=== PATIENT | female | born 1995 | race African-American/Black ===

== ENCOUNTER 2020-04-22 13:27 | Emergency (ER) | payer OTHER, SELFPAY ==
--- NOTE | ~2020-04-22 | CT_ITS ---
EXAMINATION: CT abdomen pelvis w con INDICATION: Abdominal pain TECHNIQUE: Computed tomographic images of the abdomen and pelvis were obtained after the administrati on of 100 cc of Omnipaque 350 intravenous contrast. The dose-length product (DLP) was 163.33 mGy-cm. Automated exposure control and iterative reconstruction technique were employed. COMPARISON: 08/19/2016 FINDINGS: The lung bases are clear. The heart size is normal. The liver, spleen, pancreas, gallbladde r, and adrenal glands are normal. The kidneys are unremarkable. No pathologically enlarged abdominal or pelvic lymph nodes are identified. There is no free intraperitoneal gas or evidence of bowel obstr uction. A moderate volume of colonic stool is present. The appendix appears normal. IMPRESSION: 1. No CT correlate for the patient's symptoms. Reviewed, dictated and finalized at location [facility].
[2020-04-22 13:32] VITALS: BP 107/74; PULSE 78; RESP 18; TEMP 36.8; O2SAT 100
--- NOTE | 2020-04-22 13:52 | ED.ABDPAIN ---
HPI - Abdominal Pain General Chief Complaint: Abdominal Pain Stated Complaint: nausea/dizziness/possible preg Time Seen by Provider: 04/22/20 13:31 Source: RN notes reviewed History of Present Illness HPI narrative: Patient presents emergency department from home for abdominal pain. Patient states she has been having intermittent abdominal pain for the past 2 weeks. The pain is described as cramping in nature and bilateral in the abdomen. Associated with nausea and vomiting with last episode of vomiting 2 days ago. Denies any fevers or chills chest pain shortness of breath diarrhea vaginal bleeding or any other symptoms. States she took no pain medication today Related Data Allergies Allergy/AdvReac Type Severity Reaction Status Date / Time No Known Allergies Allergy Unknown Verified 04/22/20 13:45 Review of Systems Review of Systems: Narrative: Gen.: Denies fevers or chills ENT: Denies congestion Respiratory: Denies shortness of breath or cough CV: Denies chest pain or palpitations GI: See HPI denies burning, urgency, frequency or hematuria Musculoskeletal: Denies back pain or muscle pain Neuro: Denies numbness, tingling, weakness or focal weakness Skin: Denies rash Except as documented, all other systems reviewed and negative [facility] Past Medical History Medical History Psychogenic nonepileptic seizure Family History Family History (Updated 08/10/19 @ 12:54 by Jyoti Rosenthal RN) Other Diabetes mellitus Sibling Sickle cell anemia Mother Family history of seizure disorder Social History Social History Smoking status: Never smoker Second hand tobacco smoke exposure: No Alcohol intake: never Substance use: never Gender identity (if verbalized by the patient): Female Spiritual care concerns: No Exam Narrative: Exam Narrative: APPEARANCE: No acute distress, nontoxic, resting in bed HEENT: Normocephalic, atraumatic, OMM RESPIRATORY: No respiratory distress, clear to auscultation bilaterally with no rhonchi wheezing or rales CARDIOVASCULAR: RRR s murmur ABDOMINAL: Soft, nondistended, diffusely tender to palpation, no rebound or guarding MUSCULOSKELETAl: Moves all extremities. No clubbing, cyanosis or edema. NEURO: Awake and alert. Following commands, speech normal, no focal deficits SKIN:: Warm, dry. Normal Color PSYCHIATRIC: Normal affect/mood Course Course Emergency Course: Patient states that they are feeling much better at this time. States abdominal pain has resolved. Repeat abdominal exam shows the patient's abdomen to be soft and nontender. Discussed with patient results of workup and diagnosis. Discussed need for follow-up with primary care physician, reasons to return to the emergency department in proper use of medication. Patient understands and agrees to current treatment plan Vital Signs Vital signs: Vital Signs Temperature 98.2 F 04/22/20 13:32 Pulse Rate 78 04/22/20 13:32 Respiratory Rate 18 04/22/20 13:32 Blood Pressure 107/74 04/22/20 13:32 Pulse Oximetry 100 04/22/20 13:32 Temperature 98.2 F 04/22/20 13:32 Pulse Rate 78 04/22/20 13:32 Respiratory Rate 18 04/22/20 13:32 Blood Pressure 107/74 04/22/20 13:32 Pulse Oximetry 100 04/22/20 13:32 MDM - Abdominal Pain MDM Narrative Medical decision making narrative: Patient's abdomen is soft without significant pain or signs of surgical abdomen on serial exams. Lab and x-ray evaluations are reviewed and patient is felt to be a reasonable candidate for outpatient management. Patient was instructed as to limitations of x-ray and laboratory evaluation and encouraged to return to ED or primary physician for repeat exam in 12 hours if continued or worsening pain Lab Data Result diagrams: 04/22/20 13:56 04/22/20 13:56 Labs: Lab Results 04/22/20 04/22/20 04/22/20
[2020-04-22 14:06] LABS: Basophils Percent Auto 0.6 % (0.2-1.2); Eosinophils Absolute Auto 0.1 K/mm3 (0-0.3); Eosinophils Percent Auto 2.8 % (0-4.4); Hematocrit 38.3 % (37.0-47.0); Hemoglobin 13.3 g/dL (12.0-15.0); Immature Granulocyte Absolute 0.01 K/mm3 (0.00-0.031); Immature Granulocyte Percent A 0.3 % (0-0.5); Lymphocytes Absolute Auto 1.71 K/mm3 (0.9-3.2); Lymphocytes Percent Auto 48.2 % (18.3-44.2); Mean Corpuscular HGB Conc 34.7 g/dl (32-36); Mean Corpuscular Hemoglobin 28.4 pg (26-34); Mean Corpuscular Volume 81.8 fl (80-100); Mean Platelet Volume 9.3 fl (7.4-10.4); Monocytes Absolute Auto 0.4 K/mm3 (0.1-0.6); Monocytes Percent Auto 10.4 % (2.6-8.5); Neutrophils Absolute Auto 1.3 K/mm3 (1.3-6.7); Neutrophils Percent Auto 37.7 % (45.5-73.1); Platelet Count Result 268 k/mm3 (150-375); Red Blood Count 4.68 M/mm3 (4.2-5.4); Red Cell Distribution Width 11.9 % (11.5-14.5); White Blood Count 3.6 K/mm3 (4.5-10.0)
[2020-04-22 14:13] LABS: Add Urine Microscopic? NO; Appearance Urine Clear (Clear); Bilirubin Urine Negative (Negative); Blood Urine Negative (Negative); Color Urine Yellow (Yellow); Glucose Urine UA Negative (Negative); Ketones Urine Negative (Negative); Leukocyte Esterase Ur Negative LEU/UL (Negative); Mucus Urine Moderate /lpf; Nitrate Urine Negative (Negative); Protein Urine Negative (Negative); RBC Urine 0-2 /hpf (0-2); Specific Grav Ur 1.024 (1.001-1.035); Squamous Epithelial Cell Urine Few /hpf (Few); Urobilinogen Urine Negative mg/dL (<2.0); WBC Urine 0-3 /hpf
[2020-04-22 14:18] LABS: Alanine Aminotransferase 12 U/L (4-35); Albumin Level 4.7 g/dL (3.5-5.1); Alkaline Phosphatase 159 U/L (38-126); Anion Gap 11.9 mmol/L (7-16); Aspartate Amino Transferase 21 U/L (14-36); Bilirubin,Total 0.7 mg/dL (0.2-1.3); Blood Urea Nitrogen 11 mg/dL (7-17); Calcium 9.3 mg/dL (8.4-10.2); Carbon Dioxide 26 mmol/L (22-30); Chloride 106 mmol/L (98-107); Estimated CRCL calculation 82 ml/min; Estimated Glomerular Filt Rate > 60; Glucose 92 mg/dL (65-105); Lipase 84 U/L (23-300); Potassium 3.9 mmol/L (3.4-5.0); Sodium 140 mmol/L (137-145)
[2020-04-22] MEDS: SODIUM CHLORIDE 0.9% IV 1,000 ML 999 ML IV CONT (14:43)
[2020-04-22] MEDS: DICYCLOMINE HCL INJ 20 MG/2 ML VIAL IM (15:54)
== END 2020-04-22 16:17 | disposition home or self-care (01) ==
PROVIDERS: Emergency Provider Emergency Medicine; PCP Family Medicine
DX: R10.9 Unspecified abdominal pain (principal); R11.2 Nausea with vomiting, unspecified
CPT/HCPCS: 36415; 74177; 80053; 81003; 81025; 83690; 85025; 96361; 96365; 96372; 99284; J0131; J0500; J7030; Q9967

== ENCOUNTER 2020-05-12 15:47 | Emergency (ER) | payer OTHER, SELFPAY ==
[2020-05-12 15:49] VITALS: BP 117/75; PULSE 80; RESP 20; TEMP 36.7; O2SAT 100
--- NOTE | 2020-05-12 16:04 | ED.HA ---
HPI - Headache General Chief Complaint: Syncope Stated Complaint: anxiety Time Seen by Provider: 05/12/20 15:47 History of Present Illness HPI Narrative: Called patient presents to the ED for 1 month of migraine headache. She has a history of migraine. She says the pain is 9 out of 10. She has had nausea but no vomiting. She has not tried any medicine for this. She says she has a history of seizures. The chart says nonepileptic seizures.. She denies other medical problems. He does say that she has a cough and shortness of breath. MD elicited complaint: headache and migraine Pertinent past history: other (Migraine) Onset (ago): week(s) Onset description: gradually Location: diffuse Severity: severe Pain scale (0-10): 9 Exacerbating factors: none Relieving factors: nothing Associated symptoms: nausea Treatments prior to arrival: none Related Data Home Medications Medication Instructions Recorded Confirmed No Home Medications 05/12/20 05/12/20 Allergies Allergy/AdvReac Type Severity Reaction Status Date / Time No Known Allergies Allergy Unknown Verified 04/22/20 13:45 Review of Systems Review of Systems: Narrative: CONSTITUTIONAL: Denies fever, chills, or sweats. EYES: Denies visual changes, redness, or discharge. ENT: Denies rhinorrhea, congestion, sore throat, or otalgia. CARDIOVASCULAR: Denies chest pain, palpitations, or edema. RESPIRATORY: She has cough and dyspnea. GASTROINTESTINAL: Denies abdominal pain, but has nausea. GENITOURINARY: Denies dysuria or hematuria. SKIN: Denies rash or itching. MUSCULOSKELETAL: Denies back pain, joint pain, or myalgia. NEUROLOGIC: She has headache, but not numbness, or weakness. . All systems reviewed & are unremarkable except as noted in HPI and below PMFSH Past Medical History Medical History (Updated 05/12/20 @ 16:08 by Gloria Becker MD) Psychogenic nonepileptic seizure Surgical History Surgical History (Updated 05/12/20 @ 16:07 by Gloria Becker MD) History of umbilical hernia repair Family History Family History (Updated 08/10/19 @ 12:54 by Jyoti Rosenthal RN) Other Diabetes mellitus Sibling Sickle cell anemia Mother Family history of seizure disorder Social History Social History Smoking status: Never smoker Second hand tobacco smoke exposure: No Alcohol intake: never Substance use: never Gender identity (if verbalized by the patient): Female Spiritual care concerns: No Exam Narrative: Exam Narrative: GENERAL: Well-appearing, well-nourished, and in no acute distress. Very thin HEAD: Normocephalic, atraumatic. EYES: PERRLA and EOMI. ENT: Nares clear, no rhinorrhea or epistaxis. Mucous membranes moist. NECK: Supple. CHEST: Clear to auscultation. No respiratory distress. HEART: Regular rate and rhythm. No murmur heard. Normal peripheral pulses. ABDOMEN: Soft, nontender, nondistended, normal active bowel sounds. EXTREMITIES: Normal range of motion. No edema. SKIN: Warm, dry, no rash. NEURO: No focal deficits. Alert and oriented x3. PSYCH: Flat affect. Course Reevaluation(s) Reevaluation #1: Went to check in on the patient at 650 and she is feeling entirely better. Date: 05/12/20 Time: 17:58 Vital Signs Vital signs: Vital Signs Temperature 98.0 F 05/12/20 15:49 Pulse Rate 80 05/12/20 15:49 Respiratory Rate 20 05/12/20 15:49 Blood Pressure 117/75 05/12/20 15:49 Pulse Oximetry 100 05/12/20 15:49 Temperature 98.0 F 05/12/20 15:49 Pulse Rate 80 05/12/20 15:49 Respiratory Rate 20 05/12/20 15:49 Blood Pressure 117/75 05/12/20 15:49 Pulse Oximetry 100 05/12/20 15:49 MDM - Headache Medical Records Attestation: I reviewed the patient's medical records. Lab Data Labs: Lab Results 05/12/20 05/12/20 Range/Units 16:46 16:46 Urine Color Yellow (Yellow) Urine Appearance Clear (Clear) Urine pH 6.0 (5.0-9.0)
[2020-05-12] MEDS: diphenhydrAMINE HCl INJ 50 MG/ML VIAL IV PUSH (16:18)
[2020-05-12] MEDS: METOCLOPRAMIDE HCL INJ 10 MG/2 ML VIAL IV PUSH (16:18)
[2020-05-12] MEDS: SODIUM CHLORIDE 0.9% IV 1,000 ML 999 ML IV CONT (16:18)
[2020-05-12 17:06] LABS: Add Urine Microscopic? YES; Appearance Urine Clear (Clear); Bacteria Urine Trace /hpf; Bilirubin Urine Negative (Negative); Blood Urine Negative (Negative); Color Urine Yellow (Yellow); Glucose Urine UA Negative (Negative); Ketones Urine Negative (Negative); Leukocyte Esterase Ur Negative LEU/UL (Negative); Mucus Urine Few /lpf; Nitrate Urine Negative (Negative); Protein Urine Negative (Negative); RBC Urine 0-2 /hpf (0-2); Squamous Epithelial Cell Urine Occasional /hpf (Few); WBC Urine 0-3 /hpf
[2020-05-12 17:16] LABS: Amphetamine Screen Urine Negative (Negative); Barbiturate Screen Urine Negative (Negative); Benzodiazepines Screen Urine Negative (Negative); Cannabinoid Screen Urine Negative (Negative); Cocaine Screen Urine Negative (Negative); Methadone Screen Urine Negative (Negative); Opiate Screen Urine Negative (Negative); Phencyclidine Screen Urine Negative (Negative)
[2020-05-12 18:21] VITALS: BP 112/60; PULSE 78; RESP 18; O2SAT 99
== END 2020-05-12 18:23 | disposition home or self-care (01) ==
PROVIDERS: Emergency Provider Emergency Medicine; PCP Family Medicine
DX: G43.909 Migraine, unspecified, not intractable, without status migrainosus (principal)
CPT/HCPCS: 80307; 81001; 96374; 96375; 99284; J1200; J2765; J7030

== ENCOUNTER 2020-11-11 12:28 | Outpatient (RCR) | payer OTHER, SELFPAY | END 2021-02-09 23:59 | disposition home or self-care (01) | LOC: ANHLAB 12:28 | PROVIDERS: Visit Provider Obstetrics & Gynecology | DX: Z32.01 Encounter for pregnancy test, result positive (principal) | CPT/HCPCS: 36415; 84702 ==

== ENCOUNTER 2020-11-13 00:58 | Emergency (ER) | payer OTHER, SELFPAY ==
[2020-11-13] VITALS (16 sets, daily range): BP systolic 93–111; BP diastolic 54–69; PULSE 65–79; RESP 13–22; TEMP 36.6; O2SAT 100
--- NOTE | ~2020-11-13 | US_ITS ---
US OB <=14 wk fetus w TV DATE: 11/13/2020 07:24 INDICATION: Pain in early . Evaluate for ectopic . TECHNIQUE: Real-time imaging, Doppler analysis COMPARISON: None FINDINGS: The uterus measures 7.5 cm height, 4.6 cm AP and 6.5 cm transverse dimension. An intrauteri ne gestational sac with yolk sac is identified, with surrounding normal hyperechogenicity consistent with normal decidual reaction. pole is not detected. Mean sac diameter of 1.19 cm consistent wi th 5 weeks 6 days +/- 4 days estimated gestational age. JP by ultrasound is 07/10/2021, compared to 07/12/2021 by LMP. Right ovary measures 2.4 x 1.3 x 2.9 cm. Left ovary measures 5.8 x 4.4 x 5.1 cm, with a complicated cyst measuring up to 4.2 cm. A smaller sep tated left ovarian cyst of 9.5 x 15.5 mm is noted. There is vascular flow to both ovaries. No pelvic mass or abnormal free pelvic fluid collection is evident. IMPRESSION: Early intrauterine gestation; estimated gestational age of 5 weeks 6 days +/- 4 days 4.2 cm complicated left ovarian cyst 9.5 x 15 x 5 mm septated left ovarian cyst Reviewed, dictated and finalized at [facility]. Reviewed, dictated and finalized at location [facility]. [facility]
[2020-11-13 01:30] LABS: Basophils Percent Auto 0.5 % (0.2-1.2); Eosinophils Absolute Auto 0.1 K/mm3 (0-0.3); Eosinophils Percent Auto 1.7 % (0-4.4); Hematocrit 34.9 % (37.0-47.0); Hemoglobin 12.3 g/dL (12.0-15.0); Immature Granulocyte Absolute 0.01 K/mm3 (0.00-0.031); Immature Granulocyte Percent A 0.2 % (0-0.5); Lymphocytes Absolute Auto 2.32 K/mm3 (0.9-3.2); Lymphocytes Percent Auto 36.6 % (18.3-44.2); Mean Corpuscular HGB Conc 35.2 g/dl (32-36); Mean Corpuscular Hemoglobin 29.4 pg (26-34); Mean Corpuscular Volume 83.5 fl (80-100); Mean Platelet Volume 8.6 fl (7.4-10.4); Monocytes Absolute Auto 0.7 K/mm3 (0.1-0.6); Monocytes Percent Auto 10.6 % (2.6-8.5); Neutrophils Absolute Auto 3.2 K/mm3 (1.3-6.7); Neutrophils Percent Auto 50.4 % (45.5-73.1); Platelet Count Result 300 k/mm3 (150-375); Red Blood Count 4.18 M/mm3 (4.2-5.4); Red Cell Distribution Width 11.9 % (11.5-14.5); White Blood Count 6.3 K/mm3 (4.5-10.0)
[2020-11-13] MEDS: SODIUM CHLORIDE 0.9% IV 1,000 ML 999 ML IV CONT (01:31)
[2020-11-13 01:43] LABS: Add Urine Microscopic? YES; Appearance Urine Clear (Clear); Bilirubin Urine Negative (Negative); Blood Urine Negative (Negative); Color Urine Yellow (Yellow); Glucose Urine UA Negative (Negative); Ketones Urine Negative (Negative); Leukocyte Esterase Ur Negative LEU/UL (Negative); Mucus Urine Heavy /lpf; Nitrate Urine Negative (Negative); Protein Urine 1+ mg/dL (Negative); Specific Grav Ur 1.029 (1.001-1.035); Squamous Epithelial Cell Urine Occasional /hpf (Few); WBC Urine 0-3 /hpf
[2020-11-13 02:03] LABS: Alanine Aminotransferase 10 U/L (4-35); Albumin Level 4.2 g/dL (3.5-5.1); Alkaline Phosphatase 117 U/L (38-126); Anion Gap 4 mmol/L (8-16); Aspartate Amino Transferase 22 U/L (14-36); Bilirubin,Total 0.4 mg/dL (0.2-1.3); Blood Urea Nitrogen 9 mg/dL (7-17); Calcium 8.6 mg/dL (8.4-10.2); Carbon Dioxide 26 mmol/L (22-30); Chloride 106 mmol/L (98-107); Estimated Glomerular Filt Rate > 60; Glucose 96 mg/dL (65-105); Lipase 120 U/L (23-300); Potassium 3.7 mmol/L (3.4-5.0); Sodium 136 mmol/L (137-145)
--- NOTE | 2020-11-13 03:00 | ED.GENADULT ---
HPI - General Adult General Chief complaint: Abdominal Pain Stated complaint: cramping & spotting, Time Seen by Provider: 11/13/20 01:11 History of Present Illness HPI narrative: Patient is a 25-year-old female who presents to the emergency department with chief complaint of abdominal pain. The patient reports that she is currently states her last menstrual period was in September states that she noticed that she had little bit of spotting this evening and has had cramping in her abdomen. The patient states that that no nausea or vomiting reports she is not had a ultrasound yet in this . Related Data Home Medications Medication Instructions Recorded Confirmed No Home Medications 05/12/20 05/12/20 Allergies Allergy/AdvReac Type Severity Reaction Status Date / Time No Known Allergies Allergy Unknown Verified 04/22/20 13:45 Review of Systems Review of Systems: Narrative: A 10 system review of systems was completed on the patient and is negative except for what is stated in the HPI. Nursing and ancillary documentation was reviewed. [facility] Past Medical History Medical History Psychogenic nonepileptic seizure Surgical History Surgical History History of umbilical hernia repair Family History Family History Other Diabetes mellitus Sibling Sickle cell anemia Mother Family history of seizure disorder Social History Social History Smoking status: Never smoker Second hand tobacco smoke exposure: No Alcohol intake: never Substance use: never Gender identity (if verbalized by the patient): Female Spiritual care concerns: No Exam Narrative: Exam Narrative: GENERAL: Well-appearing, well-nourished, and in no acute distress. HEAD: Normocephalic, atraumatic. EYES: PERRLA and EOMI. ENT: Nares clear, no rhinorrhea or epistaxis. Mucous membranes moist. NECK: Supple. CHEST: Clear to auscultation. No respiratory distress. HEART: Regular rate and rhythm. No murmur heard. Normal peripheral pulses. ABDOMEN: Soft, nontender, nondistended, normal active bowel sounds. EXTREMITIES: Normal range of motion. No edema. SKIN: Warm, dry, no rash. NEURO: No focal deficits. Alert and oriented x3. PSYCH: Normal mood and affect. Course Course Emergency Course: Patient was hydrated with a liter normal saline the patient's hCG was obtained which showed that she was at a level that a ultrasound could be obtained a ultrasound has been ordered at this point to evaluate if there is a ectopic Ultrasound shows evidence of IUP no evidence of ectopic Vital Signs Vital signs: Vital Signs Temperature 36.6 C 11/13/20 01:02 Pulse Rate 74 11/13/20 01:02 Respiratory Rate 16 11/13/20 01:02 Blood Pressure 111/69 11/13/20 01:02 Pulse Oximetry 100 11/13/20 01:02 Temperature 36.6 C 11/13/20 01:02 Pulse Rate 65 11/13/20 03:45 Respiratory Rate 20 11/13/20 03:45 Blood Pressure 102/58 L 11/13/20 03:30 Pulse Oximetry 100 11/13/20 01:02 Medical Decision Making Vital Signs Vital Signs: Vital Signs Temperature 36.6 C 11/13/20 01:02 Pulse Rate 74 11/13/20 01:02 Respiratory Rate 16 11/13/20 01:02 Blood Pressure 111/69 11/13/20 01:02 Pulse Oximetry 100 11/13/20 01:02 Temperature 36.6 C 11/13/20 01:02 Pulse Rate 65 11/13/20 03:45 Respiratory Rate 20 11/13/20 03:45 Blood Pressure 102/58 L 11/13/20 03:30 Pulse Oximetry 100 11/13/20 01:02 Lab Data Result diagrams: 11/13/20 01:22 11/13/20 01:22 Labs: Lab Results 11/13/20 11/13/20 11/13/20 Range/Units 01:22 01:22 01:22 WBC 6.3 (4.5-10.0) K/mm3 RBC 4.18 L (4.2-5.4) M/mm3 Hgb 12
--- NOTE | 2020-11-13 04:19 | PC.NURSE ---
Patient in US.
== END 2020-11-13 05:28 | disposition home or self-care (01) ==
PROVIDERS: Emergency Provider Emergency Medicine
DX: O20.0 Threatened abortion (principal); Z3A.01 Less than 8 weeks gestation of pregnancy
CPT/HCPCS: 36415; 76801; 76817; 80053; 81001; 81025; 83690; 84702; 85025; 85461; 96360; 99284; J7030

== ENCOUNTER 2020-12-30 12:25 | Emergency (ER) | payer OTHER, SELFPAY ==
[2020-12-30 12:39] VITALS: BP 105/74; PULSE 75; RESP 16; TEMP 36.1; O2SAT 100
[2020-12-30 14:47] VITALS: BP 103/61; PULSE 61
[2020-12-30 14:48] VITALS: BP 111/70; BP 118/76; PULSE 64; PULSE 67
[2020-12-30] MEDS: SODIUM CHLORIDE 0.9% IV 1,000 ML 999 ML IV CONT (14:57)
[2020-12-30] MEDS: ACETAMINOPHEN 500 MG TABLET 1000 MG PO (14:57)
[2020-12-30 15:21] LABS: Add Urine Microscopic? YES; Appearance Urine Cloudy (Clear); Bacteria Urine Trace /hpf; Bilirubin Urine Negative (Negative); Blood Urine Negative (Negative); Color Urine Yellow (Yellow); Glucose Urine UA Negative (Negative); Ketones Urine Trace mg/dL (Negative); Leukocyte Esterase Ur Negative LEU/UL (Negative); Mucus Urine Rare /lpf; Nitrate Urine Negative (Negative); Protein Urine Negative (Negative); RBC Urine 0-2 /hpf (0-2); Specific Grav Ur 1.025 (1.001-1.035); Squamous Epithelial Cell Urine Moderate /hpf (Few); Urobilinogen Urine Negative mg/dL (<2.0); WBC Urine 0-3 /hpf
[2020-12-30 15:40] LABS: Anion Gap 6 mmol/L (8-16); Blood Urea Nitrogen 9 mg/dL (7-17); Calcium 8.6 mg/dL (8.4-10.2); Carbon Dioxide 22 mmol/L (22-30); Chloride 106 mmol/L (98-107); Estimated Glomerular Filt Rate > 60; Glucose 72 mg/dL (65-105); Sodium 134 mmol/L (137-145)
[2020-12-30 15:55] LABS: Basophils Percent Auto 0.4 % (0.2-1.2); Eosinophils Percent Auto 0.7 % (0-4.4); Hematocrit 37.3 % (37.0-47.0); Immature Granulocyte Absolute 0.02 K/mm3 (0.00-0.031); Immature Granulocyte Percent A 0.4 % (0-0.5); Lymphocytes Absolute Auto 1.42 K/mm3 (0.9-3.2); Lymphocytes Percent Auto 25.1 % (18.3-44.2); Mean Corpuscular HGB Conc 34.9 g/dl (32-36); Mean Corpuscular Hemoglobin 29.4 pg (26-34); Mean Corpuscular Volume 84.4 fl (80-100); Mean Platelet Volume 9.1 fl (7.4-10.4); Monocytes Absolute Auto 0.5 K/mm3 (0.1-0.6); Monocytes Percent Auto 8.1 % (2.6-8.5); Neutrophils Absolute Auto 3.7 K/mm3 (1.3-6.7); Neutrophils Percent Auto 65.3 % (45.5-73.1); Platelet Count Result 251 k/mm3 (150-375); Red Blood Count 4.42 M/mm3 (4.2-5.4); Red Cell Distribution Width 12.3 % (11.5-14.5); White Blood Count 5.7 K/mm3 (4.5-10.0)
--- NOTE | 2020-12-30 16:06 | ED.GENADULT ---
HPI - General Adult General Chief complaint: Seizure Stated complaint: seizure Time Seen by Provider: 12/30/20 14:31 History of Present Illness HPI narrative: Patient is a 25-year-old female who presents ER with concerns for seizure. Patient was at work and was getting up from chair when she kind of slumped down to the ground. She then had shaking movements that there was concern for seizures. Patient reports she has history of PTSD and she has nonepileptic seizures that are induced by stress. She reports shortly before this happened she had a little bit of abdominal pain left lower quadrant. She said no urinary frequency or urgency. Her neurologist is Dr. Wong. She sees Dr. Lutz as her OB. She is currently 13 weeks gestation. She has been diagnosed with a really small subchorionic hemorrhage. Her bleeding has significantly decreased. She has no fevers or chills or sweats. She did not bite her tongue or have loss of urine. Reports normal food intake. Related Data Home Medications Medication Instructions Recorded Confirmed No Home Medications 05/12/20 05/12/20 Allergies Allergy/AdvReac Type Severity Reaction Status Date / Time No Known Allergies Allergy Unknown Verified 04/22/20 13:45 Review of Systems Review of Systems: All systems reviewed & are unremarkable except as noted in HPI and below Constitutional: Constitutional: Denies chills, Denies fever(s) and Denies weakness ENT: Denies nasal congestion and Denies sore throat Cardiovascular: Cardiovascular: Denies chest pain and Denies radiating jaw, neck or arm pain Respiratory: Respiratory: Denies cough, Denies dyspnea and Denies wheezing Gastrointestinal: Gastrointestinal: Reports abdominal pain, Denies diarrhea, Denies nausea and Denies vomiting Neurologic: Denies headache(s), Denies focal weakness and Denies numbness Comments: Pseudoseizure [facility] Past Medical History Medical History (Updated 12/30/20 @ 17:09 by Reagan Brewer MD) Psychogenic nonepileptic seizure PTSD (post-traumatic stress disorder) Surgical History Surgical History History of umbilical hernia repair Family History Family History Other Diabetes mellitus Sibling Sickle cell anemia Mother Family history of seizure disorder Social History Social History Smoking status: Never smoker Second hand tobacco smoke exposure: No Alcohol intake: never Substance use: never Gender identity (if verbalized by the patient): Female Spiritual care concerns: No Exam Narrative: Exam Narrative: GENERAL: Well-appearing, well-nourished, and in no acute distress. HEAD: Normocephalic, atraumatic. EYES: PERRL and EOMI. ENT: Normal-appearing tongue, moist mucous membranes. CHEST: Clear to auscultation. No respiratory distress. HEART: Regular rate and rhythm. Normal peripheral pulses. ABDOMEN: Soft, nontender, nondistended. EXTREMITIES: Normal range of motion. No edema. SKIN: Warm, dry, no rash. NEURO: Alert and oriented x3. PSYCH: Normal mood and affect. Course Course Emergency Course: Patient resting comfortably. Unremarkable labs. Discharge home. Vital Signs Vital signs: Vital Signs Temperature 97 F L 12/30/20 12:39 Pulse Rate 75 12/30/20 12:39 Respiratory Rate 16 12/30/20 12:39 Blood Pressure 105/74 12/30/20 12:39 Pulse Oximetry 100 12/30/20 12:39 Temperature 97 F L 12/30/20 12:39 Pulse Rate 62 12/30/20 17:02 Respiratory Rate 17 12/30/20 17:02 Blood Pressure 112/71 12/30/20 17:02 Pulse Oximetry 100 12/30/20 17:02 Medical Decision Making Vital Signs Vital Signs: Vital Signs Temperature 97 F L 12/30/20 12:39 Pulse Rate 75 12/30/20 12:39 Respiratory Rate 16 12/30/20 12:39 Blood Pressure 105/74 12/30/20 12:39
[2020-12-30 17:02] VITALS: BP 112/71; PULSE 62; RESP 17; O2SAT 100
== END 2020-12-30 17:30 | disposition home or self-care (01) ==
PROVIDERS: Emergency Provider Emergency Medicine
DX: O26.891 Other specified pregnancy related conditions, first trimester (principal); R56.9 Unspecified convulsions; O99.341 Other mental disorders complicating pregnancy, first trimester; F43.10 Post-traumatic stress disorder, unspecified; Z3A.13 13 weeks gestation of pregnancy
CPT/HCPCS: 36415; 80048; 81001; 85025; 96360; 99283; A9270; J7030

== ENCOUNTER 2021-01-25 12:08 | Outpatient (CLI) | payer OTHER, SELFPAY ==
--- NOTE | ~2021-01-25 | US_ITS ---
EXAMINATION: US OB limited DATE: 01/25/2021 12:36 INDICATION: Threatened . Vaginal bleeding. TECHNIQUE: Real-time ultrasound of the pelvis was performed. COMPARISON: Ultrasound 11/13/2020 FINDINGS: There is a single fetus in breech presentation. The placenta is posterior and fundal, 3.6 cm from th e cervix. There are hypoechoic areas in the placenta that may be venous lakes. heart rate is 15 2 beats per minute (bpm). The amniotic fluid volume is subjectively normal. The cervical length is 3. 1 cm on transabdominal images which is normal. IMPRESSION: 1. Single living fetus in breech presentation. Reviewed, dictated and finalized at location [facility].
== END 2021-01-25 12:09 | disposition home or self-care (01) ==
PROVIDERS: Visit Provider Advanced Practice Midwife
DX: O20.0 Threatened abortion (principal); O32.1XX0 Maternal care for breech presentation, not applicable or unspecified; Z3A.00 Weeks of gestation of pregnancy not specified
CPT/HCPCS: 76815

== ENCOUNTER 2021-03-09 21:30 | Inpatient (IN) | payer OTHER, SELFPAY ==
[2021-03-09] VITALS (26 sets, daily range): BP systolic 72–129; BP diastolic 25–75; PULSE 64–90; TEMP 36.8; O2SAT 99–100
--- NOTE | ~2021-03-09 | US_ITS ---
US OB limited 03/10/2021 11:07 Indication: Cervical length. Placental position. Procedure: Real-time Limited obstetrical ultrasound using transabdominal technique Comparison: 01/25/2021 Findings: There is a single living intrauterine in vertex presentation. heart rate is 155 BPM. Placenta is posterior measuring 4.7 cm to the cervix. Amniotic fluid is subjectively normal . Cervical length is 6.1 cm. Impression: 1: Single living intrauterine in vertex presentation. 2: Cervical length 6.1 cm. 3: Posterior placenta without previa. Reviewed, dictated and finalized at location [facility]. Impression: 1: Single living intrauterine in vertex presentation. 2: Cervical length 6.1 cm. 3: Posterior placenta without previa.
--- NOTE | 2021-03-09 21:30 | PC.NURSE ---
Pt arrives to OB per wheelchair stating she has severe cramping all day, worse in past [address] on [address] to car she had leakage of fluid. Pt states she is having vaginal bleeding. Pt is 22 2/7 weeks gestation.
--- NOTE | 2021-03-09 21:30 | PC.NURSE ---
Pt to OB per wheelchair. Pt states she has had cramping all day and noted some vaginal bleeding. Pt states she also my be leaking fluid. Pt states prior to arrival she noted clear fluid. Pt is 22 2/7 weeks gestation. Pt appears uncomfortable on arrival. Pt is grimacing.
--- NOTE | 2021-03-09 21:45 | PC.NURSE ---
Pt remains very drowsy. Opens eyes to name and answers to name. Dr. Lutz remains in department.
--- NOTE | 2021-03-09 21:45 | PC.NURSE ---
On arrival to room pt stood to move to bed and was noted to be staring off and not responding to name. Pt assisted back to wheelchair. Pt immediately noted to become stiff and and unresponsive. Arm straight out an tremor type movement to extremities. Pt assisted to bed with full lift per three staff members. Rapid response called. Per boyfriend pt has hx of seizures. Pt not currently taking any med. Pt has history of PTSD. childhood trauma. See previous admissions. Activity lasted approx 3-4 minutes. O2 applied per non rebreather and IV started as noted. No incontinence of urine. Pt was non verbal after. Pupils equal reactive. Dr. Lutz pagelori at [id number] and here at [id number].
--- NOTE | 2021-03-09 21:50 | PC.NURSE ---
2150 ROM plus collected. No vaginal bleeding noted. No leakage of fluid.
[2021-03-09 21:59] LABS: Basophils Percent Auto 0.3 % (0.2-1.2); Eosinophils Absolute Auto 0.1 K/mm3 (0-0.3); Eosinophils Percent Auto 1.8 % (0-4.4); Hematocrit 34.6 % (37.0-47.0); Hemoglobin 11.6 g/dL (12.0-15.0); Immature Granulocyte Absolute 0.02 K/mm3 (0.00-0.031); Immature Granulocyte Percent A 0.3 % (0-0.5); Lymphocytes Absolute Auto 1.92 K/mm3 (0.9-3.2); Lymphocytes Percent Auto 32.1 % (18.3-44.2); Mean Corpuscular HGB Conc 33.5 g/dl (32-36); Mean Corpuscular Hemoglobin 29.4 pg (26-34); Mean Corpuscular Volume 87.8 fl (80-100); Monocytes Absolute Auto 0.6 K/mm3 (0.1-0.6); Monocytes Percent Auto 10.7 % (2.6-8.5); Neutrophils Absolute Auto 3.3 K/mm3 (1.3-6.7); Neutrophils Percent Auto 54.8 % (45.5-73.1); Platelet Count Result 262 k/mm3 (150-375); Red Blood Count 3.94 M/mm3 (4.2-5.4); Red Cell Distribution Width 13.1 % (11.5-14.5)
[2021-03-09 22:14] LABS: Prothrombin Time 13.8 Seconds (11.1-14.7)
[2021-03-09 22:15] LABS: Partial Thromboplastin Time 25.7 SECONDS (22.3-36.8)
[2021-03-09 22:22] LABS: Fibrinogen 221 mg/dl (215-510)
--- NOTE | 2021-03-09 22:30 | PM.IMHP ---
H&P: HPI History of Present Illness Date/Time: 03/09/21 22:30 This patient is a 26-year-old 2 para 1001 at 22 weeks gestation and 2 days. She has good dates by an early ultrasound and last menstrual period. She was witnessed to have a seizure or convulsion type activity. Patient has a history of nonspecific convulsions. She was evaluated previously by Neurology. At her last delivery in 2019 she loss consciousness and was evaluated here at [facility]. she reported vaginal bleeding. She also reports repetitive pelvic pain and cramping. She was minimally responsive throughout evaluation. Chief Complaint: Vaginal bleeding, contractions Review of Systems Constitutional: Constitutional: Reports no additional constitutional complaints, Denies fatigue, Denies headache(s), Denies lethargy and Denies weakness Eyes: Eyes: Reports no additional eye complaints, Denies blurry vision and Denies photophobia ENT: Reports as per HPI, Denies headache(s) and Denies neck pain Cardiovascular: Cardiovascular: Denies chest pain, Denies diaphoresis, Denies leg edema, Denies palpitations and Denies dyspnea Respiratory: Respiratory: Denies hemoptysis, Denies dyspnea and Denies wheezing Gastrointestinal: Gastrointestinal: Denies abdominal pain, Denies melena, Denies bloating, Denies hematochezia, Denies nausea and Denies vomiting Genitourinary: Genitourinary: Reports no additional female genitourinary complaints Musculoskeletal: Musculoskeletal: Denies joint swelling, Denies neck pain, Denies numbness and Denies stiffness Neurologic: Denies Abnormal speech present, Denies confusion, Denies headache(s), Denies numbness and Denies weakness Psychiatric: Psychiatric: Denies anxiety, Denies confusion, Denies depression, Denies homicidal ideation and Denies suicidal ideation Endocrine: Endocrine: Denies fatigue and Denies palpitations Allergic/Immunologic: Allergic/Immunologic: Denies wheezing PMFSH Past Medical History Medical History (Updated 03/09/21 @ 22:36 by Suzy Lutz MD) Psychogenic nonepileptic seizure PTSD (post-traumatic stress disorder) Surgical History Surgical History History of umbilical hernia repair Family History Family History Other Diabetes mellitus Sibling Sickle cell anemia Mother Family history of seizure disorder Social History Social History Smoking status: Never smoker Second hand tobacco smoke exposure: No Alcohol intake: never Substance use: never Gender identity (if verbalized by the patient): Female Spiritual care concerns: No Meds Home Medications and Allergies Home Medications Medication Instructions Recorded Confirmed Type No Home Medications 05/12/20 05/12/20 History Allergies Allergy/AdvReac Type Severity Reaction Status Date / Time No Known Allergies Allergy Unknown Verified 04/22/20 13:45 Vital Signs Vital Signs - 24 hr 03/09/21 21:38 03/09/21 21:40 03/09/21 21:45 Pulse Rate 89 83 Blood Pressure 129/69 94/75 L Pulse Oximetry 100 100 100 03/09/21 21:50 03/09/21 21:55 03/09/21 22:00 Pulse Rate 67 Blood Pressure 104/55 L Pulse Oximetry 100 100 100 03/09/21 22:05 03/09/21 22:10 03/09/21 22:15 Pulse Rate 75 Blood Pressure 109/56 L Pulse Oximetry 100 100 99 03/09/21 22:20 03/09/21 22:25 Pulse Rate Blood Pressure Pulse Oximetry 100 100 Exam Const: General: healthy appearing, comfortable and no acute distress; No confusion Orientation/consciousness: No confusion Eyes: Direct Ophthalmoscopy: No photophobia Resp: Auscultation: clear to auscultation bilaterally, no rales, no rhonchi and no wheezes Cardio: Rate: regular rate Heart sounds: no click, no murmurs and no rubs GI: Inspection: non-distended GI Palp: No abdomi
--- NOTE | 2021-03-09 22:35 | PC.NURSE ---
To IMU per bed accompanied by boyfriend. Pt remains very drowsy. Opens eyes to name. Respirations non labored. IV infusing without difficulty.
[2021-03-09 22:41] LABS: D Dimer 0.78 ug/mL (<0.48)
[2021-03-09] MEDS: LACTATED RINGERS 1,000 ML 999 ML IV CONT ×2 (22:55→23:02)
--- NOTE | 2021-03-09 23:20 | PC.NURSE ---
Report to Penny in IMU. Pt remains very drowsy but wakes when named called. Pt does not answer questions at this time.
--- NOTE | 2021-03-09 23:20 | PC.NURSE ---
Report received from ROGER Velazquez.
[2021-03-10] VITALS (12 sets, daily range): BP systolic 90–106; BP diastolic 46–56; PULSE 64–83; RESP 12–100; TEMP 36.1–36.6; O2SAT 16–100; BMI 21.4
--- NOTE | 2021-03-10 00:35 | ADMGEN ---
This patient, Bryon Rosario, was admitted to IMU Room 209-01 on 03/09/21 at 2343. Patient/family oriented to hospital policies and general routines including ID bracelet, bed and alarms, visiting hours, pain management, procedures, bathroom and other care routines, personal items, smoking policy, room service/diet, and visiting hours. Information on how to activate the Rapid Response Team has been discussed. Patient/Family are encouraged to report perceived risks to care and to ask questions if they do not understand what they are told or what they should do.
[2021-03-10 00:58] LABS: Alanine Aminotransferase 6 U/L (4-35); Albumin Level 3.2 g/dL (3.5-5.1); Alkaline Phosphatase 88 U/L (38-126); Anion Gap 5 mmol/L (8-16); Aspartate Amino Transferase 18 U/L (14-36); Bilirubin,Total 0.3 mg/dL (0.2-1.3); Blood Urea Nitrogen 4 mg/dL (7-17); Calcium 8.6 mg/dL (8.4-10.2); Carbon Dioxide 24 mmol/L (22-30); Chloride 107 mmol/L (98-107); Estimated CRCL calculation 124 ml/min; Estimated Glomerular Filt Rate > 60; Glucose 81 mg/dL (65-105); Potassium 3.7 mmol/L (3.4-5.0); Sodium 136 mmol/L (137-145)
[2021-03-10] MEDS: LACTATED RINGERS 1,000 ML 125 ML IV CONT ×2 (01:02→09:04)
--- NOTE | 2021-03-10 01:55 | PC.NURSE ---
Pt noted to have approx 30 seconds of jerking movements of body and unresponsive at 220. Dr. Lutz aware remains in department and aware. Valium ordered and given at 2204.
[2021-03-10 02:11] LABS: HIV 1/2 Ab P24 Ag Result Negative (Negative)
[2021-03-10] MEDS: diazePAM INJ (*CRX) 10 MG/2 ML SYRINGE IV PUSH (07:59)
[2021-03-10] MEDS: diazePAM INJ (*CRX) 10 MG/2 ML SYRINGE 5 MG IV PUSH (09:02)
[2021-03-10] MEDS: diazePAM INJ (*CRX) 10 MG/2 ML SYRINGE 5 MG IM (12:41)
--- NOTE | 2021-03-10 13:31 | WPDNEURCNPN ---
Assessment and Plan Additional Plan considering her previous evaluation and the present symptomatology her seizures are most likely related to anxietyresponding to Valium, will not be started on anticonvulsants particularly with the history of Consult date: 03/10/21 Time Seen: 01:00 HPI: Bryon Rosario is a 26 year old [id number] years old 2 para 1 at 22 weeks gestation and 2 days documented by the ultrasound and last menstruation. Admitted to the hospital for the complaints of witnessed seizures or seizure-like activity patient has been evaluated by the Neurology service in the past also when she was documented to have anxiety related or pseudo-seizure evaluation up until now has revealed her to have normal CBC normal chemistry with negative toxicology screen no neurological his scans have been done COVID serologies negative Review of Systems Review of Systems: All systems reviewed & are unremarkable except as noted in HPI and below PMFSH Past Medical History Medical History Psychogenic nonepileptic seizure PTSD (post-traumatic stress disorder) Surgical History Surgical History History of umbilical hernia repair Family History Family History Other Diabetes mellitus Sibling Sickle cell anemia Mother Family history of seizure disorder Social History Social History Smoking status: Never smoker Second hand tobacco smoke exposure: No Alcohol intake: never Substance use: former Substance use type: marijuana Gender identity (if verbalized by the patient): Female Spiritual care concerns: No Meds Home Medications and Allergies Home Medications Medication Instructions Recorded Confirmed Type No Home Medications 05/12/20 03/10/21 History Allergies Allergy/AdvReac Type Severity Reaction Status Date / Time No Known Allergies Allergy Unknown Verified 04/22/20 13:45 Vital Signs Vital Signs - 24 hr 03/09/21 21:38 03/09/21 21:40 03/09/21 21:44 Temperature 36.8 C Pulse Rate 89 Respiratory Rate Blood Pressure 129/69 Pulse Oximetry 100 100 03/09/21 21:45 03/09/21 21:50 03/09/21 21:55 Temperature Pulse Rate 83 Respiratory Rate Blood Pressure 94/75 L Pulse Oximetry 100 100 100 03/09/21 22:00 03/09/21 22:05 03/09/21 22:10 Temperature Pulse Rate 67 Respiratory Rate Blood Pressure 104/55 L Pulse Oximetry 100 100 100 03/09/21 22:15 03/09/21 22:20 03/09/21 22:25 Temperature Pulse Rate 75 Respiratory Rate Blood Pressure 109/56 L Pulse Oximetry 99 100 100 03/09/21 22:30 03/09/21 22:31 03/09/21 22:35 Temperature Pulse Rate 81 Respiratory Rate Blood Pressure 105/57 L Pulse Oximetry 100 100 03/09/21 22:40 03/09/21 22:45 03/09/21 22:46 Temperature Pulse Rate 80 Respiratory Rate Blood Pressure 72/25 L Pulse Oximetry 99 100 03/09/21 22:50 03/09/21 22:55 03/09/21 23:00 Temperature Pulse Rate 69 67 Respiratory Rate Blood Pressure 97/50 L 98/49 L Pulse Oximetry 100 100 99 03/09/21 23:05 03/09/21 23:10 03/09/21 23:15 Temperature Pulse Rate 69 Respiratory Rate Blood Pressure 97/49 L Pulse Oximetry 100 100 100 03/09/21 23:20 03/09/21 23:25 03/10/21 00:00 Temperature 36.3 C L Pulse Rate 73 Respiratory Rate 100 H Blood Pressure 106/54 L Pulse Oximetry 100 100 16 L 03/10/21 00:24 03/10/21 02:00 03/10/21 04:00 Temperature 36.3 C L 36.2 C L Pulse Rate 73 78 71 Respiratory Rate 100 H 16 Blood Pressure 106/54 L 90/49 L Pulse Oximetry 16 L 100 03/10/21 06:00 03/10/21 08:00 03/10/21 11:57 Temperature 36.3 C L 36.6 C Pulse Rate 81 73 69 Respiratory Rate 14 12 Blood Pressure 94/51 L 91/46 L Pulse Oximetry 100 100 Exam
--- NOTE | 2021-03-10 15:45 | PC.NURSE ---
This patient, Bryon Rosario, was transferred to [ [id number] ] on 03/10/21 at 1510. Personal belongings sent with patient. Report given to [ ROGER Polk. ]. Appropriate documentation sent with patient.
--- NOTE | 2021-03-10 17:24 | PM.OBPNVD ---
OB - PN: Subj Subjective Date/time seen: 03/10/21 17:24 patient is feeling better today. No seizure today. No vision changes, no limb weakness, no problems with speech. Patient comments: no complaints OB - PN: Obj Data Labs CBC & Chem 7: 03/09/21 21:52 03/10/21 00:26 Labs: Laboratory Results - last 24 hr 03/09/21 03/09/21 03/09/21 21:52 21:52 21:52 WBC 6.0 RBC 3.94 L Hgb 11.6 L Hct 34.6 L MCV 87.8 MCH 29.4 MCHC 33.5 RDW 13.1 Plt Count 262 MPV 9.0 Immature Gran % (Auto) 0.3 Neut % (Auto) 54.8 Lymph % (Auto) 32.1 [place] % (Auto) 10.7 H Eos % (Auto) 1.8 Baso % (Auto) 0.3 Lymph # (Auto) 1.92 [place] # (Auto) 0.6 Eos # (Auto) 0.1 Baso # (Auto) 0.0 Abs Immat Gran (auto) 0.02 Absolute Neuts (auto) 3.3 Absolute Nucleated RBC 0.0 Nucleated RBC % 0.0 PT INR APTT Fibrinogen D-Dimer Sodium Potassium Chloride Carbon Dioxide Anion Gap BUN Creatinine Estim Creat Clear Calc Estimated GFR Glucose Calcium Total Bilirubin AST ALT Alkaline Phosphatase Total Protein Albumin RPR Cancelled HIV 1&2 Ab/P24 Ag 4thGn Rubella IgG Antibody Cancelled 03/09/21 03/10/21 03/10/21 21:52 00:26 00:26 WBC RBC Hgb Hct MCV MCH MCHC RDW Plt Count MPV Immature Gran % (Auto) Neut % (Auto) Lymph % (Auto) [place] % (Auto) Eos % (Auto) Baso % (Auto) Lymph # (Auto) [place] # (Auto) Eos # (Auto) Baso # (Auto) Abs Immat Gran (auto) Absolute Neuts (auto) Absolute Nucleated RBC Nucleated RBC % PT 13.8 INR 1.0 APTT 25.7 Fibrinogen 221 D-Dimer 0.78 H Sodium 136 L Potassium 3.7 Chloride 107 Carbon Dioxide 24 Anion Gap 5 L BUN 4 L D Creatinine 0.50 L Estim Creat Clear Calc 124 Estimated GFR > 60 Glucose 81 Calcium 8.6 Total Bilirubin 0.3 AST 18 ALT 6 Alkaline Phosphatase 88 Total Protein 6.0 L Albumin 3.2 L RPR HIV 1&2 Ab/P24 Ag 4thGn Negative Rubella IgG Antibody Imaging Radiologist's impression: Impressions Obstetrics Ultrasound 03/10/21 11:10 Impression: 1: Single living intrauterine in vertex presentation. 2: Cervical length 6.1 cm. 3: Posterior placenta without previa. OB - PN A/P Assessment and Plan (1) PTSD (post-traumatic stress disorder): Code(s): F43.10 - Post-traumatic stress disorder, unspecified Status: Acute (2) Convulsions: Code(s): R56.9 - Unspecified convulsions Status: Acute (3) : Code(s): Z34.90 - Encounter for supervision of normal , unspecified, unspecified trimester Status: Acute Assessment and Plan: Patient has follow-up with Neurology. She has follow-up with high-risk wax engraver, she has follow-up with General home health clinical liaison next week. She is stable. She has had no seizure activity today. She would prefer to be home she says. She is resting. She does have some right lower quadrant pain that is consistent with round ligament pain. She was given instructions. Time Spent With Patient Time: Total time spent is greater than 50% in coordination of care (as documented) at patient's floor/unit and/or counseling patient: Exam Const: General: comfortable, no acute distress and alert Resp: Effort & Inspection: normal respiratory effort Auscultation: no crackles, no rales and no rhonchi Cardio: Rate: regular rate Heart sounds: no click, no murmurs and no rubs GI: Inspection: non-distended GI Palp: No Tenderness to palpation present (GI) Auscultation: normal bowel sounds Extrem: General: normal to inspection, no pedal edema and no calf tenderness
--- NOTE | 2021-04-09 19:09 | PM.DS ---
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 She was observed have a seizure. She was admitted. She was observed for some time. She did not have any subsequent seizures. Neurology consult again was obtained. She was stable after the seizure. She is known to have pseudoseizures. She has a very traumatic childhood history. Status at Discharge Functional status at discharge: independent ambulation Time Spent with Patient Time attestation: Total time spent providing and/or coordinating discharge services: Discharge Plan Discharge Consulting providers: Hang Tatum Discharging Clinician: Suzy Lutz Patient Disposition: Home, Self-Care Activity: no driving Diet: regular Patient Instructions: Antibiotic Form, Nonepileptic Seizures (GEN) Stand Alone Forms: General Discharge Information Follow-up/Referrals: Suzy Lutz MD [Physician] - Discharge Medications: No Action No Home Medications RF: 0 Date of admission: 03/09/21 21:30 Primary Care Provider: PHYSICIAN,DOUBLE END SEWER Admitting Provider: Suzy Lutz Attending physician on admission: Suzy Lutz Condition: Stable
== END 2021-03-10 18:35 | disposition home or self-care (01) | DRG 566 ==
LOC: ANHLDR 23:59 → ANHIMU 03-10 00:02 → ANH3MED 03-10 15:13
PROVIDERS: Admitting Provider Obstetrics & Gynecology; Visit Provider Obstetrics & Gynecology
DX: O99.352 Diseases of the nervous system complicating pregnancy, second trimester (principal); R56.9 Unspecified convulsions; O99.342 Other mental disorders complicating pregnancy, second trimester; F41.9 Anxiety disorder, unspecified; F43.10 Post-traumatic stress disorder, unspecified; O46.92 Antepartum hemorrhage, unspecified, second trimester; O34.82 Maternal care for other abnormalities of pelvic organs, second trimester; N90.818 Other female genital mutilation status
CPT/HCPCS: 36415; 76815; 80053; 84112; 85025; 85380; 85384; 85610; 85730; 86592; 86703; 86762; 86850; 86900; 86901; G0432; J3360; J7120

== ENCOUNTER 2021-03-27 10:22 | Outpatient (CLI) | payer OTHER, SELFPAY ==
--- NOTE | ~2021-03-27 | US_ITS ---
EXAMINATION: US venous doppler LE RT DATE: 03/27/2021 10:59 INDICATION: Right lower limb pain and swelling TECHNIQUE: Krishnamurthy scale images without and with compression and Doppler images of the right lower extre mity veins were obtained. COMPARISON: None FINDINGS: The right common femoral vein, profunda femoral vein, femoral vein, popliteal vein, peronea l trunk, posterior tibial veins, and greater saphenous vein are patent. IMPRESSION: 1. Patent right lower extremity veins. No evidence of deep venous thrombosis. Reviewed, dictated and finalized at location B.
== END 2021-03-27 10:23 | disposition home or self-care (01) ==
PROVIDERS: Visit Provider Obstetrics & Gynecology
DX: I82.401 Acute embolism and thrombosis of unspecified deep veins of right lower extremity (principal)
CPT/HCPCS: 93971

== ENCOUNTER 2021-04-21 21:30 | Inpatient (IN) | payer OTHER, SELFPAY ==
[2021-04-21] VITALS (40 sets, daily range): BP systolic 107–136; BP diastolic 53–83; PULSE 64–278; RESP 14–26; TEMP 36.7; O2SAT 91–100
[2021-04-21] MEDS: diazePAM INJ (*CRX) 10 MG/2 ML SYRINGE IV PUSH (22:18)
[2021-04-21 22:32] LABS: Glucose Point of Care 86 mg/dl (65-105)
[2021-04-21] MEDS: LACTATED RINGERS 1,000 ML 999 ML IV CONT (22:41)
[2021-04-21] MEDS: LORazepam INJ (*CRX) 2 MG/ML VIAL IV PUSH (22:59)
[2021-04-21 23:05] LABS: Lactic Acid Reflex 3.7 mmol/L (0.7-2.1)
[2021-04-21] MEDS: MAGNESIUM SULF 6 GM/WATER150ML 6 GM/150 ML BAG IVPB (23:30)
--- NOTE | 2021-04-21 23:53 | PM.IMHP ---
H&P: HPI History of Present Illness Date/Time: 04/21/21 23:53 This patient is a 26-year-old female 2 para 1001 at 28 and 3/7th weeks known to have pseudo seizure. She presented to Labor and delivery for contractions. She had painful contractions. They started about 20:00. She denies any loss of fluid or vaginal bleeding. She came to the labor and delivery unit and IV fluids were started. That is when she began to have apparent convulsion type activity. She remained stable throughout these convulsions. She was seen to be duncan on the monitor. The heart rate tracing was reassuring. She denies any nausea, vomiting, fever, chills. She denies any chest pain or shortness of breath. Denies any blurry vision, epigastric pain, worsening edema. Chief Complaint: painful contractions Review of Systems Constitutional: Constitutional: Reports no additional constitutional complaints, Denies fatigue, Denies headache(s), Denies lethargy and Denies weakness Eyes: Eyes: Reports no additional eye complaints, Denies blurry vision and Denies photophobia ENT: Reports as per HPI, Denies headache(s) and Denies neck pain Cardiovascular: Cardiovascular: Denies chest pain, Denies diaphoresis, Denies leg edema, Denies palpitations and Denies dyspnea Respiratory: Respiratory: Denies hemoptysis, Denies dyspnea and Denies wheezing Gastrointestinal: Gastrointestinal: Denies abdominal pain, Denies melena, Denies bloating, Denies hematochezia, Denies nausea and Denies vomiting Genitourinary: Genitourinary: Reports no additional female genitourinary complaints Musculoskeletal: Musculoskeletal: Denies joint swelling, Denies neck pain, Denies numbness and Denies stiffness Neurologic: Denies Abnormal speech present, Denies confusion, Denies headache(s), Denies numbness and Denies weakness Psychiatric: Psychiatric: Denies anxiety, Denies confusion, Denies depression, Denies homicidal ideation and Denies suicidal ideation Endocrine: Endocrine: Denies fatigue and Denies palpitations Allergic/Immunologic: Allergic/Immunologic: Denies wheezing PMFSH Past Medical History Medical History Psychogenic nonepileptic seizure PTSD (post-traumatic stress disorder) Surgical History Surgical History History of umbilical hernia repair Family History Family History Other Diabetes mellitus Sibling Sickle cell anemia Mother Family history of seizure disorder Social History Social History Smoking status: Never smoker Second hand tobacco smoke exposure: No Alcohol intake: never Substance use: former Substance use type: marijuana Gender identity (if verbalized by the patient): Female Spiritual care concerns: No Meds Home Medications and Allergies Home Medications Medication Instructions Recorded Confirmed Type No Home Medications 05/12/20 03/10/21 History Allergies Allergy/AdvReac Type Severity Reaction Status Date / Time No Known Allergies Allergy Unknown Verified 04/22/20 13:45 Vital Signs Vital Signs - 24 hr 04/21/21 21:37 04/21/21 21:57 04/21/21 22:01 Pulse Rate 64 80 Blood Pressure 115/57 L 130/59 L Pulse Oximetry 94 04/21/21 22:02 04/21/21 22:07 04/21/21 22:12 Pulse Rate 82 Blood Pressure 136/63 Pulse Oximetry 100 100 100 04/21/21 22:17 04/21/21 22:21 04/21/21 22:22 Pulse Rate 85 81 Blood Pressure 118/62 114/58 L Pulse Oximetry 100 100 04/21/21 22:26 04/21/21 22:27 04/21/21 22:31 Pulse Rate 76 78 Blood Pressure 108/57 L 115/58 L Pulse Oximetry 100 04/21/21 22:32 04/21/21 22:37 04/21/21 22:42 Pulse Rate Blood Pressure Pulse Oximetry 100 100 100 04/21/21 22:45 04/21/21 22:48 04/21/21 22:53 Pulse Rate 81 Blood Pressure 1
[2021-04-22] VITALS (289 sets, daily range): BP systolic 73–120; BP diastolic 41–72; PULSE 65–130; RESP 18–20; TEMP 36.1–36.6; O2SAT 96–100; BMI 21.9
--- NOTE | 2021-04-22 00:15 | PC.NURSE ---
RN asked Dr. uLtz if he wanted to start the pt on antibiotics and Dr. Lutz stated he didn't think they were needed at this time.
[2021-04-22] MEDS: BETAMETHASONE SOD PHOS/ACETATE 30 MG/5 ML VIAL 12 MG IM (00:25)
--- NOTE | 2021-04-22 00:54 | PC.NURSE ---
2125- pt presented to department via wheelchair grunting and bearing down with contractions. Pt taken to the room. see next note for additional care given.
--- NOTE | 2021-04-22 01:07 | PC.NURSE ---
2153-IV initiated 2155-seizure began 2156-rapid response called 2158-IV fluids initiated, O2 @15L per non-rebreather 2199-rapid response team at bedside 2204-seizure began 2205-Nicole Turner CNM notified and coming in 2213-blood drawn per rapid response team 2214-blood glucose checked 2217-Diazepam 10mg given IV 2229-blood drawn per rapid response team 2234-Nicole Turner CNM at bedside 2236-rapid response team left 2243-seizure began 2245-rapid response team called again 2246-Dr. Lutz called, coming in 2247-rapid response team at bedside 2252-sternal rub with no response [id number] seizure 2256-Dr. Lutz at bedside 2258-Lorazepam 2mg given IV [id number] seizure 2300-O2 per non-rebreather discontinued [id number] seizure x2 2307-SVE per Nicole Turner CNM [id number] 2316-seizure 232-rapid response team left 232-seizure 233-Magnesium sulfate 6gm bolus started 233-Mag assessment performed 233-ROM plus performed 235-Lin inserted 235-SVE per Nicole Turner CNM 0025-Celestone 12mg given IM Nicole Turner CNM remains at bedside.
[2021-04-22 01:37] LABS: Reflex Lactic Acid Yes or No Add Lactic
--- NOTE | 2021-04-22 01:40 | PC.NURSE ---
Dr. Lutz notified of pt's SVE of . Dr. Lutz states he did not feel a transfer was needed at this time.
[2021-04-22] MEDS: NIFEdipine 30 MG TAB.ER.24 PO (01:42)
[2021-04-22 03:11] LABS: Basophils Percent Auto 0.3 % (0.2-1.2); Eosinophils Absolute Auto 0.1 K/mm3 (0-0.3); Eosinophils Percent Auto 0.8 % (0-4.4); Hematocrit 31.9 % (37.0-47.0); Hemoglobin 10.8 g/dL (12.0-15.0); Immature Granulocyte Absolute 0.03 K/mm3 (0.00-0.031); Immature Granulocyte Percent A 0.4 % (0-0.5); Lymphocytes Absolute Auto 0.93 K/mm3 (0.9-3.2); Lymphocytes Percent Auto 12.7 % (18.3-44.2); Mean Corpuscular HGB Conc 33.9 g/dl (32-36); Mean Corpuscular Hemoglobin 29.2 pg (26-34); Mean Corpuscular Volume 86.2 fl (80-100); Mean Platelet Volume 9.4 fl (7.4-10.4); Monocytes Absolute Auto 0.3 K/mm3 (0.1-0.6); Monocytes Percent Auto 3.7 % (2.6-8.5); Neutrophils Percent Auto 82.1 % (45.5-73.1); Platelet Count Result 238 k/mm3 (150-375); Red Cell Distribution Width 11.9 % (11.5-14.5); White Blood Count 7.4 K/mm3 (4.5-10.0)
[2021-04-22] MEDS: MAGNESIUM SULF 20GM/WATER500ML 500 ML 50 MG IV CONT ×2 (06:36→16:40)
[2021-04-22] MEDS: LACTATED RINGERS 1,000 ML 75 ML (06:51)
--- NOTE | 2021-04-22 07:10 | LDADM ---
This patient, Bryon Rosario, was admitted to Labor/Delivery/Recovery 106 on 04/21/21 at 21:30. Plans for labor, pain management and were discussed with patient. Patient/family oriented to hospital policies and general routines including ID bracelet, bed and alarms, visiting hours, pain management, procedures, bathroom and other care routines, personal items, smoking policy, room service/diet and guest tray routines, security routines, and visiting hours. Patient/Family are encouraged to report perceived risks to care and to ask questions if they do not understand what they are told or what they should do. See OBIX for further documentation.
[2021-04-22] MEDS: LORazepam INJ (*CRX) 2 MG/ML VIAL IV PUSH (12:07)
[2021-04-22] MEDS: NIFEdipine 10 MG CAPSULE PO ×2 (12:55→19:05)
--- NOTE | 2021-04-22 14:12 | WPDNEURCNPN ---
Assessment and Plan Additional Plan considering her description no one can describe with she has had pseudo seizure or real seizure but because of her at this stage I will continue the Keppra 1000 mg q.12 hours obtain the EEG on Saturday and further recommendation will be made accordingly Consult date: 04/22/21 Time Seen: 14:00 HPI: Bryon Rosario is a 26 year old female 2 para 1 at 28 and 3 over 7th week gestation admitted to the [facility] for labor and delivery because of the contractions with no history of loss of fluid or vaginal bleeding since admission she has been receiving IV fluids and also since admission she has been noted to have convulsions though she remained stable throughout there was no significant change in the heart rate and there was no history of nausea vomiting or shortness of breath. Patient going history of psychogenic nonepileptic seizures with posttraumatic stress disorder and history of umbilical hernia repair she is a never smoker never alcohol intake or and former substance user at the time of admission she has not been taking any medications she has reported to be taken care by Dr. peoples and Dr. Whalen in [facility] who had been giving her Keppra Review of Systems Review of Systems: All systems reviewed & are unremarkable except as noted in HPI and below PMFSH Past Medical History Medical History Psychogenic nonepileptic seizure PTSD (post-traumatic stress disorder) Surgical History Surgical History History of umbilical hernia repair Family History Family History Other Diabetes mellitus Sibling Sickle cell anemia Mother Family history of seizure disorder Social History Social History Smoking status: Never smoker Second hand tobacco smoke exposure: No Alcohol intake: never Substance use: former Substance use type: marijuana Gender identity (if verbalized by the patient): Female Spiritual care concerns: No Meds Home Medications and Allergies Home Medications Medication Instructions Recorded Confirmed Type [id number]-[id number] 1 cap PO Q4-6H 04/22/21 04/22/21 History hydroxyzine HCl 25 mg PO TID 04/22/21 04/22/21 History hyoscyamine sulfate [Oscimin SR] 0.375 mg PO Q12H 04/22/21 04/22/21 History levetiracetam 500 mg PO BID 04/22/21 04/22/21 History metoclopramide HCl 10 mg PO TID 04/22/21 04/22/21 History pantoprazole 40 mg PO DAILY 04/22/21 04/22/21 History polysaccharide iron complex 150 mg PO DAILY 04/22/21 04/22/21 History [Poly-Iron] Allergies Allergy/AdvReac Type Severity Reaction Status Date / Time No Known Allergies Allergy Unknown Verified 04/22/20 13:45 Vital Signs Vital Signs - 24 hr 04/21/21 21:37 04/21/21 21:57 04/21/21 22:01 Temperature Pulse Rate 64 77 Respiratory Rate 14 Blood Pressure 115/57 L 130/59 L Pulse Oximetry 94 100 04/21/21 22:02 04/21/21 22:05 04/21/21 22:07 Temperature Pulse Rate 84 82 Respiratory Rate 18 Blood Pressure 136/63 136/63 Pulse Oximetry 100 100 04/21/21 22:12 04/21/21 22:17 04/21/21 22:19 Temperature Pulse Rate 78 Respiratory Rate 26 H Blood Pressure 114/58 L Pulse Oximetry 100 100 100 04/21/21 22:21 04/21/21 22:22 04/21/21 22:26 Temperature Pulse Rate 85 81 76 Respiratory Rate Blood Pressure 118/62 114/58 L 108/57 L Pulse Oximetry 100 04/21/21 22:27 04/21/21 22:31 04/21/21 22:32 Temperature Pulse Rate 78 Respiratory Rate Blood Pressure 115/58 L Pulse Oximetry 100 100 04/21/21 22:37 04/21/21 22:42 04/21/21 22:45 Temperature Pulse Rate 81 Respiratory Rate Blood Pressure 124/74 Pulse Oximetry 100 100 04/21/21 22:48 04/21/21 22:51 04/21/21 22:53 Temperature Pulse Ra
[2021-04-22] MEDS: levETIRAcetam 500 MG TABLET 1000 MG PO (16:11)
[2021-04-22] MEDS: ACETAMINOPHEN 500 MG TABLET 1000 MG PO (19:27)
[2021-04-22] MEDS: LACTATED RINGERS 1,000 ML 75 ML IV CONT (21:33)
[2021-04-23] VITALS (58 sets, daily range): BP systolic 106–118; BP diastolic 52–67; PULSE 80–130; RESP 20–26; O2SAT 96–100
[2021-04-23] MEDS: NIFEdipine 10 MG CAPSULE PO (01:02)
[2021-04-23] MEDS: BETAMETHASONE SOD PHOS/ACETATE 30 MG/5 ML VIAL 12 MG IM (01:03)
[2021-04-23] MEDS: ONDANSETRON INJ 4 MG/2 ML VIAL IV PUSH (01:08)
[2021-04-23] MEDS: diazePAM INJ (*CRX) 10 MG/2 ML SYRINGE IV PUSH (01:57)
[2021-04-23] MEDS: MAGNESIUM SULF 20GM/WATER500ML 500 ML 50 MG IV CONT (02:56)
--- NOTE | 2021-04-23 02:59 | PM.GYNPNOP ---
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 She is having a repetitive pseudo seizure. She is stable at this time. she was in labor and has been stabilized at this time. She is on magnesium sulfate. She is received steroids. Her 2nd dose was at 0103 on April 23, 2021. She has reassuring heart tones. Stable vital signs. her transfer of care has been accepted by Dr. Lorenzo at [facility]. She had numerous episodes of convulsions tonight. Rapid response was called. She was stable throughout, reassuring heart tones throughout. Time Spent With Patient Time: Total time spent is greater than 50% in coordination of care (as documented) at patient's floor/unit and/or counseling patient: Time with patient: Greater than 35 minutes ROCK WORKER- PN:Subj Post-Op Subjective Date/time seen: 04/23/21 02:59Patient had multiple pseudoseizures tonight /this morning. She remained stable throughout those seizures. She reports some mild contractions. She denies any loss of fluid or vaginal bleeding. She reports movement. She denies any nausea, vomiting, fevers, chills. Exam Const: General: healthy appearing, comfortable and no acute distress Resp: Auscultation: clear to auscultation bilaterally, no rales, no rhonchi and no wheezes Cardio: Rate: regular rate Heart sounds: no click, no murmurs and no rubs GI: Inspection: non-distended Auscultation: normal bowel sounds : Manual OB Exam: dilated 2 cm, effaced 50% and station high Extrem: General: normal to inspection, no pedal edema and no calf tenderness ROCK WORKER - PN: Obj Data Vital Signs Vital Signs: Vital Signs - 24 hr 04/22/21 03:01 04/22/21 03:06 04/22/21 03:11 Temperature Pulse Rate Respiratory Rate Blood Pressure Pulse Oximetry 100 100 100 04/22/21 03:16 04/22/21 03:21 04/22/21 03:26 Temperature Pulse Rate 70 Respiratory Rate Blood Pressure 109/55 L Pulse Oximetry 100 100 100 04/22/21 03:31 04/22/21 03:36 04/22/21 03:41 Temperature Pulse Rate 73 Respiratory Rate Blood Pressure 109/55 L Pulse Oximetry 99 100 100 04/22/21 03:46 04/22/21 03:51 04/22/21 03:56 Temperature Pulse Rate 74 Respiratory Rate Blood Pressure 108/59 L Pulse Oximetry 100 100 100 04/22/21 04:01 04/22/21 04:06 04/22/21 04:11 Temperature Pulse Rate 75 Respiratory Rate Blood Pressure 101/56 L Pulse Oximetry 99 100 100 04/22/21 04:16 04/22/21 04:21 04/22/21 04:26 Temperature Pulse Rate 91 Respiratory Rate Blood Pressure 110/61 Pulse Oximetry 99 100 100 04/22/21 04:31 04/22/21 04:36 04/22/21 04:41 Temperature Pulse Rate 78 Respiratory Rate Blood Pressure 104/53 L Pulse Oximetry 100 100 99 04/22/21 04:46 04/22/21 04:51 04/22/21 04:56 Temperature Pulse Rate 69 Respiratory Rate Blood Pressure 109/50 L Pulse Oximetry 99 100 100 04/22/21 05:01 04/22/21 05:06 04/22/21 05:11 Temperature Pulse Rate 77 Respiratory Rate Blood Pressure 100/54 L Pulse Oximetry 100 100 100 04/22/21 05:16 04/22/21 05:21 04/22/21 05:26 Temperature Pulse Rate 76 Respiratory Rate Blood Pressure 109/52 L Pulse Oximetry 100 100 99 04/22/21 05:31 04/22/21 05:36 04/22/21 05:41 Temperature Pulse Rate 77
--- NOTE | 2021-04-23 03:17 | PC.NURSE ---
0113- 1st seizure 0114- seizure 0115- seizure 0116- seizure 0118- seizure 0120- seizure 0121- seizure 0123- seizure 0124- seizure 0125- 2g Ativan given IV- o2% 98, P:124, BP 115/63 0126- seizure 0127- seizure o2% 100%, P: 140- Rapid Response Called 0129- Dr. Lutz called 0130- [employer] Business Analyst (Jennifer), Rapid Response team in room 0132- o2% 100%, P:109 0133- o2% 100%, P:116, BP-118/57 0135- Jennifer (FACILITIES OFFICER ICU NURSE) called Dr. Lutz 0136- ammonia used- pt responding some, eyes open slightly, rocking head back and forth 0137- seizure o2%100%, P: [phone]- o2% 99%, P:106 0141- seizure 0146- Jennifer called Dr. Lutz 0147- o2%-98%, P:107, used ammonia-opening eyes 0149- seizure 0150- seizure o2%-99%, P:[phone]- o2% 100%, P:114 0152- Dr. Lutz in room 0153- o2% 100%, P:[phone]- Dr. Lutz gave verbal order to give valium 0157- Valium 10mg IV given 0200- seizure o2%-100%, P:300-182 1960- o2%-99%, P:111, BP-118/52 0204- o2% 100%, P:[phone]- o2%-99%, P: 107 0211- FACILITIES OFFICER out of room
--- NOTE | 2021-04-23 07:33 | PCCCNOTE ---
Care Coordination note. Pt. referred to Care coordination for resources and seizure disorder but still driving. Received message from RN that pt. not ready to talk yet today as she was recovering from a seizure. Pt. was then transferred to [facility].
[2021-04-24 09:52] LABS: Rapid Plasma Reagin Non-Reactive (NonReactive)
[2021-04-26 22:48] LABS: Levetiracetam Keppra <1.0 mcg/mL (12.0-46.0)
[2021-04-27 06:53] LABS: Prolactin 743.3 ng/mL (***)
--- NOTE | 2021-06-18 19:58 | PM.TDS ---
Transfer Discharge Sum: Prov Provider Date of admission: 04/21/21 21:30 Primary care physician: [employer] WORKER PHYSICIAN Admitting clinician: Suzy Lutz MD Attending physician on admission: Suzy Lutz Consults: 04/22/21 Care Coordination Consult Routine Comment: resources--pt has seizure disorder but driving. 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 Status: Acute Transfer Discharge Sum: Med Medications Active and Home Medications: Home Medications polysaccharide iron complex [Poly-Iron] 150 mg PO DAILY 04/22/21 [History Confirmed 06/14/21] acetaminophen 325 mg PO Q4H PRN 05/07/21 [History Confirmed 06/14/21] budesonide-formoterol [Symbicort] 1 puff INHALATION BID 05/07/21 [History Confirmed 06/14/21] buspirone 10 mg PO DAILY 05/07/21 [History Confirmed 06/14/21] magnesium oxide 400 mg PO BID 05/07/21 [History Confirmed 06/14/21] hydroxyzine pamoate 25 mg PO TID PRN cap 05/08/21 [Rx Confirmed 06/14/21] lamotrigine 25 mg PO DAILY 06/14/21 [History Confirmed 06/14/21] valacyclovir 500 mg PO DAILY 06/14/21 [History Confirmed 06/14/21] Transfer Discharge Sum: Hosp Hospital Course Hospital course: Bryon Rosario is a 26 year old female she is a multiparous female who presented with false labor. She began to have pseudo-seizure. Neurology consult was obtained. She was observed for time. Hospital staff was uncomfortable with her presence. We transferred her to [facility]. Time Spent with Patient Time attestation: Total time spent providing and/or coordinating transfer services:
== END 2021-04-23 04:17 | disposition short-term general hospital (02) | DRG 565 ==
PROVIDERS: Admitting Provider Obstetrics & Gynecology; Visit Provider Obstetrics & Gynecology
DX: O47.03 False labor before 37 completed weeks of gestation, third trimester (principal); Z3A.28 28 weeks gestation of pregnancy; O43.113 Circumvallate placenta, third trimester; F44.5 Conversion disorder with seizures or convulsions; F43.10 Post-traumatic stress disorder, unspecified
CPT/HCPCS: 36415; 80177; 82948; 83605; 84112; 84146; 85025; 86592; 86850; 86900; 86901; A9270; J0702; J2060; J2405; J3360; J3475; J7120

== ENCOUNTER 2021-04-27 11:44 | Observation (INO) | payer OTHER, SELFPAY ==
[2021-04-27 12:10] VITALS: BP 102/53; PULSE 81
--- NOTE | 2021-04-27 17:33 | OBADM ---
This patient, Bryon Rosario, admitted to the OB room OB Post 112 for observation. Patient/family oriented to hospital policies and general routines including ID bracelet, bed and alarms, visiting hours, pain management, procedures, bathroom and other care routines, personal items, smoking policy, room service/diet, call light and visiting hours. Patient/Family are encouraged to report perceived risks to care and to ask questions if they do not understand what they are told or what they should do.
--- NOTE | 2021-05-20 10:03 | PM.OBTRLD ---
OB - Triage/Final Diagnosis Visit Information Comments/Additional reasons for admission: I have assessed the risk for this patient, Bryon Rosario, and determined that she would benefit from observation care. Final Diagnosis (1) Amniotic fluid leaking: Code(s): O42.90 - Premature rupture of membranes, unspecified as to length of time between rupture and onset of labor, unspecified weeks of gestation Status: Acute
--- NOTE | 2021-05-20 10:07 | P.TS_ITS ---
Transfer Discharge Sum: Prov Provider Date of admission: 04/27/21 11:44 Primary care physician: [employer]PER[employer] SUPERINTENDENT PHYSICIAN Admitting clinician: Suzy Lutz MD DS: Admitting Diagnosis Admitting Diagnosis Pseudo-seizure DS: Discharge Diagnosis Discharge Diagnosis (1) : Code(s): Z34.90 - Encounter for supervision of normal , unspecified, unspecified trimester Status: Acute (2) Pseudoseizures: Code(s): F44.5 - Conversion disorder with seizures or convulsions Status: Acute (3) Threatened labor: Code(s): O47.00 - False labor before 37 completed weeks of gestation, unspecified trimester Status: Acute Transfer Discharge Sum: Med Medications Active and Home Medications: Home Medications hydroxyzine HCl 25 mg PO TID 04/22/21 [History Confirmed 05/07/21] hyoscyamine sulfate [Oscimin SR] 0.375 mg PO Q12H 04/22/21 [History Confirmed 05/07/21] metoclopramide HCl 10 mg PO TID 04/22/21 [History Confirmed 05/07/21] pantoprazole 40 mg PO DAILY 04/22/21 [History Confirmed 05/07/21] polysaccharide iron complex [Poly-Iron] 150 mg PO DAILY 04/22/21 [History Confirmed 05/07/21] acetaminophen 325 mg PO Q4H PRN 05/07/21 [History Confirmed 05/07/21] budesonide-formoterol [Symbicort] 1 puff INHALATION BID 05/07/21 [History Confirmed 05/07/21] buspirone 10 mg PO DAILY 05/07/21 [History Confirmed 05/07/21] magnesium oxide 400 mg PO BID 05/07/21 [History Confirmed 05/07/21] hydroxyzine pamoate 25 mg PO TID PRN cap 05/08/21 [Rx] nifedipine [Procardia XL] 30 mg PO QAM 30 Days #30 tablet 05/08/21 [Rx] Transfer Discharge Sum: Hosp Hospital Course Hospital course: Bryon Rosario is a 26 year old female multiparous, who presented with contractions and pseudo-seizure. Patient had numerous cm of seizures while she was in the hospital. She was admitted for observation and watched overnight. She was treated with anticonvulsants and benzodiazepines. These did not result in resolution of her symptoms. She was duncan. She was at risk of delivery. She was stable throughout her stay about we transferred her to a tertiary care center, [facility] for a higher level of care. Time Spent with Patient Time attestation: Total time spent providing and/or coordinating transfer services: Exam Const: General: healthy appearing, comfortable and no acute distress Resp: Auscultation: clear to auscultation bilaterally, no rales, no rhonchi and no wheezes Cardio: Rate: regular rate Heart sounds: no click, no murmurs and no rubs GI: Inspection: non-distended Auscultation: normal bowel sounds Extrem: General: normal to inspection, no pedal edema and no calf tenderness
== END 2021-04-27 13:33 | disposition home or self-care (01) ==
PROVIDERS: Admitting Provider Obstetrics & Gynecology; Visit Provider Obstetrics & Gynecology
DX: O42.913 Preterm premature rupture of membranes, unspecified as to length of time between rupture and onset of labor, third trimester (principal); O47.03 False labor before 37 completed weeks of gestation, third trimester; F44.5 Conversion disorder with seizures or convulsions; Z3A.29 29 weeks gestation of pregnancy
CPT/HCPCS: 84112; G0378; G0379

== ENCOUNTER 2021-05-07 10:02 | Observation (INO) | payer OTHER, SELFPAY ==
[2021-05-07] VITALS (15 sets, daily range): BP systolic 91–115; BP diastolic 42–67; PULSE 64–76; TEMP 36.6–37; BMI 22.4
--- NOTE | ~2021-05-07 | US_ITS ---
EXAMINATION: US OB limited w BPP, US umbilical doppler DATE: 05/08/2021 08:03 (accession [id number]), 05/08/2021 08:04 (accession [id number]) INDICATION: decelerations during third trimester TECHNIQUE: Real-time pelvic ultrasound was performed. The interpreting radiologist was not present fo r the study. COMPARISON: None. FINDINGS: There is a single living fetus in vertex presentation. The placenta is posterior. heart rate is 152 beats per minute (bpm). The amniotic fluid index is 9.6 cm which is normal (normal range: 8.8 cm to 23.8 cm). Biophysical profile performed by the technologist: breathing (30 sec sustained breathing in 30 minutes): 2 out of 2 movement (3 gross body movements in 30 minutes): 2 out of 2 tone (one episode of amfqxcv-meihgkryh-nwjsvok limb movement): 2 out of 2 Amniotic fluid pocket (2 cm): 2 out of 2 Total score: 8 out of 8 Umbilical artery pulsed Doppler demonstrates peak systolic to end-diastolic velocity ratios (S/D rati os) of 3.0, 2.9 near the fetus, 3.2, 3.0 in the mid cord, and 2.9, 2.4 near the placenta (5th percent ile = 2.21, 95th percentile = 3.97). IMPRESSION: 1. Single living fetus in vertex presentation. 2. Biophysical profile 8 out of 8. 3. Normal amniotic fluid index. 4. Normal umbilical artery Doppler ratios. Reviewed, dictated and finalized at location B. IMPRESSION: 1. Single living fetus in vertex presentation. 2. Biophysical profile 8 out of 8. 3. Normal amniotic fluid index. 4. Normal umbilical artery Doppler ratios.
--- NOTE | 2021-05-07 10:46 | OBADM ---
This patient, Bryon Rosario, admitted to the OB room 116 on 05/07 at 1002 for observation for cramping. Patient/family oriented to hospital policies and general routines including ID bracelet, bed and alarms, visiting hours, pain management, procedures, bathroom and other care routines, personal items, smoking policy, room service/diet, and visiting hours. Patient/Family are encouraged to report perceived risks to care and to ask questions if they do not understand what they are told or what they should do.
[2021-05-07 11:02] LABS: Add Urine Microscopic? YES; Appearance Urine Clear (Clear); Bacteria Urine Trace /hpf; Bilirubin Urine Negative (Negative); Blood Urine Negative (Negative); Color Urine Yellow (Yellow); Glucose Urine UA Negative (Negative); Ketones Urine Negative (Negative); Leukocyte Esterase Ur Negative LEU/UL (Negative); Mucus Urine Rare /lpf; Nitrate Urine Negative (Negative); Protein Urine Negative (Negative); RBC Urine 0-2 /hpf (0-2); Specific Grav Ur 1.016 (1.001-1.035); Squamous Epithelial Cell Urine Occasional /hpf (Few); WBC Urine 0-3 /hpf
[2021-05-07] MEDS: NIFEdipine 30 MG TAB.ER.24 (11:08)
[2021-05-07 12:02] LABS: Fetal Fibronectin Negative
[2021-05-08] VITALS (10 sets, daily range): BP systolic 91–112; BP diastolic 47–61; PULSE 63–68; TEMP 36.4–36.9
[2021-05-08] MEDS: ONDANSETRON HCL ODT 4 MG TABLET PO (00:08)
[2021-05-08] MEDS: hydrOXYzine pamoate 25 MG CAPSULE PO (00:09)
--- NOTE | 2021-05-08 08:23 | PM.IMHP ---
H&P: HPI History of Present Illness Date/Time: 05/08/21 08:23 this patient is a 26-year-old multiparous female 30 weeks gestation who presented for contractions. She has had intermittent contractions and threatened labor on numerous occasions. Procardia was started. Patient has a history of pseudoseizures. They have been stable for a couple of weeks. She is using Vistaril in that regard. She reports good movement. She denies any nausea, vomiting, fever, chills. She denies any loss of fluid or vaginal bleeding. She reports good movement. Chief Complaint: Contractions, uterine Review of Systems Constitutional: Constitutional: Reports no additional constitutional complaints, Denies fatigue, Denies headache(s), Denies lethargy and Denies weakness Eyes: Eyes: Reports no additional eye complaints, Denies blurry vision and Denies photophobia ENT: Reports as per HPI, Denies headache(s) and Denies neck pain Cardiovascular: Cardiovascular: Denies chest pain, Denies diaphoresis, Denies leg edema, Denies palpitations and Denies dyspnea Respiratory: Respiratory: Denies hemoptysis, Denies dyspnea and Denies wheezing Gastrointestinal: Gastrointestinal: Denies abdominal pain, Denies melena, Denies bloating, Denies hematochezia, Denies nausea and Denies vomiting Genitourinary: Genitourinary: Reports no additional female genitourinary complaints Musculoskeletal: Musculoskeletal: Denies joint swelling, Denies neck pain, Denies numbness and Denies stiffness Neurologic: Denies Abnormal speech present, Denies confusion, Denies headache(s), Denies numbness and Denies weakness Psychiatric: Psychiatric: Denies anxiety, Denies confusion, Denies depression, Denies homicidal ideation and Denies suicidal ideation Endocrine: Endocrine: Denies fatigue and Denies palpitations Allergic/Immunologic: Allergic/Immunologic: Denies wheezing PMFSH Past Medical History Medical History Psychogenic nonepileptic seizure PTSD (post-traumatic stress disorder) Surgical History Surgical History History of umbilical hernia repair Family History Family History Other Diabetes mellitus Sibling Sickle cell anemia Mother Family history of seizure disorder Social History Social History Smoking status: Never smoker Second hand tobacco smoke exposure: No Alcohol intake: never Substance use: former Substance use type: marijuana Gender identity (if verbalized by the patient): Female Spiritual care concerns: No Meds Home Medications and Allergies Home Medications Medication Instructions Recorded Confirmed Type hydroxyzine HCl 25 mg PO TID 04/22/21 05/07/21 History hyoscyamine sulfate [Oscimin SR] 0.375 mg PO Q12H 04/22/21 05/07/21 History metoclopramide HCl 10 mg PO TID 04/22/21 05/07/21 History pantoprazole 40 mg PO DAILY 04/22/21 05/07/21 History polysaccharide iron complex 150 mg PO DAILY 04/22/21 05/07/21 History [Poly-Iron] acetaminophen 325 mg PO Q4H PRN 05/07/21 05/07/21 History budesonide-formoterol [Symbicort] 1 puff INHALATION BID 05/07/21 05/07/21 History buspirone 10 mg PO DAILY 05/07/21 05/07/21 History magnesium oxide 400 mg PO BID 05/07/21 05/07/21 History Allergies Allergy/AdvReac Type Severity Reaction Status Date / Time No Known Allergies Allergy Unknown Verified 04/22/20 13:45 Vital Signs Vital Signs - 24 hr 05/07/21 10:45 05/07/21 10:46 05/07/21 11:00 Temperature 98.6 F Pulse Rate 67 66 Blood Pressure 111/59 L 115/66 05/07/21 12:00 05/07/21 13:00 05/07/21 14:00 Temperature 98.1 F Pulse Rate 64 73 68 Blood Pressure 96/54 L 98/49 L 106/60 05/07/21 15:00 05/07/21 16:00 05/07/21 17:00 Temperature 98.1 F Pulse Rate 76 69 66 Blood Pressure 106/58 L 103/51 L 91/44 L
[2021-05-08] MEDS: NIFEdipine 30 MG TAB.ER.24 PO (08:48)
== END 2021-05-08 08:47 | disposition home or self-care (01) ==
PROVIDERS: Admitting Provider Obstetrics & Gynecology; Visit Provider Obstetrics & Gynecology
DX: O47.03 False labor before 37 completed weeks of gestation, third trimester (principal); Z3A.30 30 weeks gestation of pregnancy; F44.5 Conversion disorder with seizures or convulsions
CPT/HCPCS: 76815; 76819; 76820; 81001; 82731; 84112; A9270; G0378; G0379

== ENCOUNTER 2021-05-21 23:33 | Observation (INO) | payer OTHER, SELFPAY ==
--- NOTE | 2021-05-22 00:03 | OBADM ---
This patient, Bryon Rosario, admitted to the OB room Labor/Delivery/Recovery 106 for observation. Patient/family oriented to hospital policies and general routines including ID bracelet, bed and alarms, visiting hours, pain management, procedures, bathroom and other care routines, personal items, smoking policy, room service/diet, and visiting hours. Patient/Family are encouraged to report perceived risks to care and to ask questions if they do not understand what they are told or what they should do.
[2021-05-22 00:16] VITALS: BP 103/62; PULSE 64
[2021-05-22 00:31] VITALS: BP 104/57; PULSE 61
[2021-05-22 00:36] VITALS: BMI 22.4
[2021-05-22 00:39] VITALS: RESP 18
[2021-05-22 00:46] VITALS: BP 100/60; PULSE 60
--- NOTE | 2021-06-18 19:34 | PM.OBTRLD ---
OB - Triage/Final Diagnosis Visit Information Comments/Additional reasons for admission: I have assessed the risk for this patient, Bryon Rosario, and determined that she would benefit from observation care. Final Diagnosis (1) False labor: Code(s): O47.9 - False labor, unspecified Status: Acute
== END 2021-05-22 01:08 | disposition home or self-care (01) ==
PROVIDERS: Admitting Provider Obstetrics & Gynecology; Visit Provider Obstetrics & Gynecology
DX: O47.03 False labor before 37 completed weeks of gestation, third trimester (principal); Z3A.32 32 weeks gestation of pregnancy
CPT/HCPCS: G0378; G0379

== ENCOUNTER → 2021-05-25 03:29 | Outpatient (CLI) | payer OTHER, SELFPAY ==
[2021-05-25 20:01] LABS: SARS-CoV-2 RNA PCR Positive
== END ==
PROVIDERS: Visit Provider Obstetrics & Gynecology
DX: U07.1 COVID-19 (principal)
CPT/HCPCS: C9803; U0003; U0005

== ENCOUNTER 2021-06-08 11:29 | Outpatient (CLI) | payer OTHER, SELFPAY ==
[2021-06-08] VITALS (8 sets, daily range): BP systolic 107–118; BP diastolic 62–72; PULSE 57–65
[2021-06-08 12:20] LABS: Basophils Percent Auto 0.4 % (0.2-1.2); Eosinophils Absolute Auto 0.1 K/mm3 (0-0.3); Eosinophils Percent Auto 2.1 % (0-4.4); Hematocrit 33.8 % (37.0-47.0); Hemoglobin 11.4 g/dL (12.0-15.0); Immature Granulocyte Absolute 0.04 K/mm3 (0.00-0.031); Immature Granulocyte Percent A 0.8 % (0-0.5); Lymphocytes Absolute Auto 1.19 K/mm3 (0.9-3.2); Mean Corpuscular HGB Conc 33.7 g/dl (32-36); Mean Corpuscular Hemoglobin 29.2 pg (26-34); Mean Corpuscular Volume 86.4 fl (80-100); Mean Platelet Volume 9.9 fl (7.4-10.4); Monocytes Absolute Auto 0.5 K/mm3 (0.1-0.6); Monocytes Percent Auto 9.5 % (2.6-8.5); Neutrophils Percent Auto 62.2 % (45.5-73.1); Platelet Count Result 259 k/mm3 (150-375); Red Blood Count 3.91 M/mm3 (4.2-5.4); Red Cell Distribution Width 12.4 % (11.5-14.5); White Blood Count 4.8 K/mm3 (4.5-10.0)
[2021-06-08 12:28] LABS: Add Urine Microscopic? YES; Appearance Urine Clear (Clear); Bacteria Urine Trace /hpf; Bilirubin Urine Negative (Negative); Blood Urine Negative (Negative); Color Urine Yellow (Yellow); Glucose Urine UA Negative (Negative); Ketones Urine Negative (Negative); Leukocyte Esterase Ur Negative LEU/UL (NEGATIVE); Mucus Urine Rare /lpf; Nitrate Urine Negative (Negative); Protein Urine Negative (Negative); Specific Grav Ur 1.017 (1.001-1.035); Squamous Epithelial Cell Urine Occasional /hpf (Few); WBC Urine 0-3 /hpf (0-3)
[2021-06-08 12:31] LABS: Alanine Aminotransferase 12 U/L (4-35); Albumin Level 3.3 g/dL (3.5-5.1); Alkaline Phosphatase 124 U/L (38-126); Anion Gap 6 mmol/L (8-16); Aspartate Amino Transferase 19 U/L (14-36); Bilirubin,Total 0.5 mg/dL (0.2-1.3); Blood Urea Nitrogen 5 mg/dL (7-17); Calcium 8.7 mg/dL (8.4-10.2); Carbon Dioxide 22 mmol/L (22-30); Chloride 106 mmol/L (98-107); Estimated Glomerular Filt Rate > 60; Glucose 131 mg/dL (65-110); Potassium 3.5 mmol/L (3.4-5.0); Sodium 134 mmol/L (137-145); Uric Acid 2.8 mg/dL (2.5-7.5)
[2021-06-08 13:02] LABS: Creatinine Urine 144.9 mg/dL; Total Protein Urine Random 20 mg/dL; Ur Ttl Prot Creatinine Ratio 0.14 mg/mg (0-0.20)
== END 2021-06-08 14:10 | disposition home or self-care (01) ==
LOC: ANHOBOP 11:34 → ANHOBPP 11:34
PROVIDERS: Visit Provider Obstetrics & Gynecology
DX: O13.3 Gestational [pregnancy-induced] hypertension without significant proteinuria, third trimester (principal); Z3A.37 37 weeks gestation of pregnancy
CPT/HCPCS: 36415; 80053; 81001; 82570; 84156; 84550; 85025; 87086; 99199

== ENCOUNTER 2021-06-12 10:00 | Outpatient (RCR) | payer OTHER, SELFPAY ==
[2021-04-17 14:11] VITALS: BP 104/62; PULSE 65
[2021-06-12 10:46] VITALS: BP 109/67; PULSE 78
== END 2021-06-15 07:02 | disposition home or self-care (01) ==
LOC: ANHOBOP 10:00
PROVIDERS: Visit Provider Obstetrics & Gynecology
DX: O36.8120 Decreased fetal movements, second trimester, not applicable or unspecified (principal); Z3A.27 27 weeks gestation of pregnancy; Z3A.35 35 weeks gestation of pregnancy
CPT/HCPCS: 59025

== ENCOUNTER 2021-06-13 03:37 | Observation (INO) | payer OTHER, SELFPAY ==
[2021-06-13 04:44] VITALS: BMI 22.5
== END 2021-06-13 04:59 | disposition home or self-care (01) ==
PROVIDERS: Admitting Provider Obstetrics & Gynecology; Visit Provider Obstetrics & Gynecology
DX: O47.9 False labor, unspecified (principal); Z3A.00 Weeks of gestation of pregnancy not specified
CPT/HCPCS: G0378; G0379

== ENCOUNTER 2021-06-14 11:05 | Inpatient (IN) | payer OTHER, SELFPAY ==
[2021-06-14] VITALS (68 sets, daily range): BP systolic 87–140; BP diastolic 47–94; PULSE 59–107; RESP 16–18; TEMP 36.4–36.8; O2SAT 99–100; BMI 24.2
--- NOTE | 2021-06-14 11:33 | LDADM ---
This patient, Bryon Rosario, was admitted to Labor/Delivery/Recovery 103 on 06/14/21 at 11:05. Plans for labor, pain management and were discussed with patient. Patient/family oriented to hospital policies and general routines including ID bracelet, bed and alarms, visiting hours, pain management, procedures, bathroom and other care routines, personal items, smoking policy, room service/diet and guest tray routines, security routines, and visiting hours. Patient/Family are encouraged to report perceived risks to care and to ask questions if they do not understand what they are told or what they should do. See OBIX for further documentation.
[2021-06-14 11:55] LABS: Basophils Percent Auto 0.2 % (0.2-1.2); Eosinophils Absolute Auto 0.1 K/mm3 (0-0.3); Eosinophils Percent Auto 1.4 % (0-4.4); Hematocrit 35.7 % (37.0-47.0); Hemoglobin 11.7 g/dL (12.0-15.0); Immature Granulocyte Absolute 0.03 K/mm3 (0.00-0.031); Immature Granulocyte Percent A 0.5 % (0-0.5); Lymphocytes Absolute Auto 1.13 K/mm3 (0.9-3.2); Mean Corpuscular HGB Conc 32.8 g/dl (32-36); Mean Corpuscular Hemoglobin 29.3 pg (26-34); Mean Corpuscular Volume 89.5 fl (80-100); Mean Platelet Volume 9.5 fl (7.4-10.4); Monocytes Absolute Auto 0.8 K/mm3 (0.1-0.6); Monocytes Percent Auto 11.9 % (2.6-8.5); Neutrophils Absolute Auto 4.6 K/mm3 (1.3-6.7); Platelet Count Result 223 k/mm3 (150-375); Red Blood Count 3.99 M/mm3 (4.2-5.4); Red Cell Distribution Width 12.9 % (11.5-14.5); White Blood Count 6.7 K/mm3 (4.5-10.0)
[2021-06-14] MEDS: LACTATED RINGERS 1,000 ML 125 ML IV CONT (12:00)
[2021-06-14] MEDS: OXYTOCIN 30 UNITS/NS 500 ML 30 UNITS/500 ML BAG IV CONT (12:00)
--- NOTE | 2021-06-14 12:53 | WPDANESEPP ---
Anes - Eval Pre Procedure Procedure: Management of Labor Pain Date/Time: 06/14/21 12:53 Surgeon: Bolivar Preop Diagnosis: Pain during Labor Pre Op Diagnosis: Induction Patient Data Age: 26 Gender: F Height: 1.6 m Weight: 62 kg Last Vital Signs Temp 98.1 F 06/14/21 12:00 Pulse 69 06/14/21 12:46 BP 115/71 06/14/21 12:46 Allergies Allergy/AdvReac Type Severity Reaction Status Date / Time No Known Allergies Allergy Unknown Verified 04/22/20 13:45 Home Medications Medication Instructions Recorded Confirmed Type polysaccharide iron complex 150 mg PO DAILY 04/22/21 06/14/21 History [Poly-Iron] acetaminophen 325 mg PO Q4H PRN 05/07/21 06/14/21 History budesonide-formoterol [Symbicort] 1 puff INHALATION BID 05/07/21 06/14/21 History buspirone 10 mg PO DAILY 05/07/21 06/14/21 History magnesium oxide 400 mg PO BID 05/07/21 06/14/21 History hydroxyzine pamoate 25 mg PO TID PRN cap 05/08/21 06/14/21 Rx lamotrigine 25 mg PO DAILY 06/14/21 06/14/21 History valacyclovir 500 mg PO DAILY 06/14/21 06/14/21 History Laboratory Tests 06/14/21 06/14/21 11:27 11:27 WBC 6.7 K/mm3 K/mm3 (4.5-10.0) RBC 3.99 M/mm3 L M/mm3 (4.2-5.4) Hgb 11.7 g/dL L g/dL (12.0-15.0) Hct 35.7 % L % (37.0-47.0) MCV 89.5 fl fl (80-100) MCH 29.3 pg pg (26-34) MCHC 32.8 g/dl g/dl (32-36) RDW 12.9 % % (11.5-14.5) Plt Count 223 k/mm3 k/mm3 (150-375) MPV 9.5 fl fl (7.4-10.4) Immature Gran % (Auto) 0.5 % % (0-0.5) Neut % (Auto) 69.0 % % (45.5-73.1) Lymph % (Auto) 17.0 % L % (18.3-44.2) [place] % (Auto) 11.9 % H % (2.6-8.5) Eos % (Auto) 1.4 % % (0-4.4) Baso % (Auto) 0.2 % % (0.2-1.2) Lymph # (Auto) 1.13 K/mm3 K/mm3 (0.9-3.2) [place] # (Auto) 0.8 K/mm3 H K/mm3 (0.1-0.6) Eos # (Auto) 0.1 K/mm3 K/mm3 (0-0.3) Baso # (Auto) 0.0 K/mm3 K/mm3 (0.0-0.1) Abs Immat Gran (auto) 0.03 K/mm3 K/mm3 (0.00-0.031) Absolute Neuts (auto) 4.6 K/mm3 K/mm3 (1.3-6.7) Absolute Nucleated RBC 0.0 K/mm3 K/mm3 (0.0-0.012) Nucleated RBC % 0.0 % % (0.0-0.2) RPR Pending : gestational age (edc 07/11/21) HCG: positive Patient hx anesthesia problems: none Family hx anesthesia problems: none PMFSH Past Medical History Medical History Psychogenic nonepileptic seizure PTSD (post-traumatic stress disorder) Surgical History Surgical History History of umbilical hernia repair Family History Family History Other Diabetes mellitus Sibling Sickle cell anemia Mother Family history of seizure disorder Social History Social History Smoking status: Never smoker Second hand tobacco smoke exposure: No Alcohol intake: never Substance use: never Substance use type: marijuana Gender identity (if verbalized by the patient): Female Spiritual care concerns: No Exam Day of Procedure 06/14/21 12:53
--- NOTE | 2021-06-14 17:51 | WPDOBADMIT ---
Obstetrics - Admit Note Admission Note: 26 y/o @ 36 weeks gestation here for induction of labor d/t IUGR with reverse flow on u/s today. Per Dr Mccain pt needs to be delivered. Cervix /-1 AROM moderate amount of clear odorless fluid. record reviewed. No pertinent additions to the history and/or any subsequent changes in the physical findings that are not consistent with the expected course of the were found. Additions to the history and/or subsequent changes in the physical findings follow. None.
--- NOTE | 2021-06-14 17:54 | PM.IMHP ---
H&P: HPI History of Present Illness Date/Time: 06/14/21 17:54 Chief Complaint: Induction of labor [facility] Past Medical History Medical History Psychogenic nonepileptic seizure PTSD (post-traumatic stress disorder) Surgical History Surgical History History of umbilical hernia repair Family History Family History Other Diabetes mellitus Sibling Sickle cell anemia Mother Family history of seizure disorder Social History Social History Smoking status: Never smoker Second hand tobacco smoke exposure: No Alcohol intake: never Substance use: never Substance use type: marijuana Gender identity (if verbalized by the patient): Female Spiritual care concerns: No Meds Home Medications and Allergies Home Medications Medication Instructions Recorded Confirmed Type polysaccharide iron complex 150 mg PO DAILY 04/22/21 06/14/21 History [Poly-Iron] acetaminophen 325 mg PO Q4H PRN 05/07/21 06/14/21 History budesonide-formoterol [Symbicort] 1 puff INHALATION BID 05/07/21 06/14/21 History buspirone 10 mg PO DAILY 05/07/21 06/14/21 History magnesium oxide 400 mg PO BID 05/07/21 06/14/21 History hydroxyzine pamoate 25 mg PO TID PRN cap 05/08/21 06/14/21 Rx lamotrigine 25 mg PO DAILY 06/14/21 06/14/21 History valacyclovir 500 mg PO DAILY 06/14/21 06/14/21 History Allergies Allergy/AdvReac Type Severity Reaction Status Date / Time No Known Allergies Allergy Unknown Verified 04/22/20 13:45 Vital Signs Vital Signs - 24 hr 06/14/21 11:31 06/14/21 11:46 06/14/21 12:00 Temperature 98.1 F Pulse Rate 70 73 Blood Pressure 119/67 123/72 Pulse Oximetry 06/14/21 12:01 06/14/21 12:16 06/14/21 12:31 Temperature Pulse Rate 72 69 70 Blood Pressure 122/70 120/69 119/69 Pulse Oximetry 06/14/21 12:46 06/14/21 13:01 06/14/21 13:16 Temperature Pulse Rate 69 70 78 Blood Pressure 115/71 117/63 125/68 Pulse Oximetry 06/14/21 13:46 06/14/21 14:01 06/14/21 14:16 Temperature Pulse Rate 63 63 65 Blood Pressure 122/69 116/67 114/69 Pulse Oximetry 06/14/21 14:31 06/14/21 14:46 06/14/21 15:01 Temperature Pulse Rate 82 91 74 Blood Pressure 129/78 105/79 125/80 Pulse Oximetry 06/14/21 15:07 06/14/21 15:11 06/14/21 15:12 Temperature Pulse Rate 67 Blood Pressure 131/79 Pulse Oximetry 100 100 06/14/21 15:15 06/14/21 15:16 06/14/21 15:17 Temperature Pulse Rate 72 72 Blood Pressure 117/73 118/68 Pulse Oximetry 99 06/14/21 15:18 06/14/21 15:21 06/14/21 15:22 Temperature Pulse Rate 71 72 Blood Pressure 127/75 125/72 Pulse Oximetry 100 06/14/21 15:23 06/14/21 15:26 06/14/21 15:27 Temperature Pulse Rate 74 68 Blood Pressure 111/69 124/70 Pulse Oximetry 99 06/14/21 15:28 06/14/21 15:31 06/14/21 15:33 Temperature Pulse Rate 74 68 72 Blood Pressure 121/67 122/64 123/66 Pulse Oximetry 06/14/21 15:36 06/14/21 15:38 06/14/21 15:41 Temperature Pulse Rate 69 67 68 Blood Pressure 124/67 123/66 122/63 Pulse Oximetry 06/14/21 15:43 06/14/21 15:44 06/14/21 15:46 Temperature Pulse Rate 66 107 H Blood Pressure 120/64 111/94 H Pulse Oximetry 100 06/14/21 15:50 06/14/21 15:55 06/14/21 15:56 Temperature Pulse Rate Blood Pressure Pulse Oximetry 100 100 100 06/14/21 16:01 06/14/21 16:06 06/14/21 16:16 Temperature Pulse Rate 65 66 Blood Pressure 120/66 110/62 Pulse Oximetry 100 100 06/14/21 16:31 06/14/21 16:46 06/14/21 17:01 Temperature Pulse Rate 64 61 62 Blood Pressure 107/57 L 122/73 117/67 Pulse Oximetry 06/14/21 17:16 06/14/21 17:31 06/14/21 17:46 Temperature Pulse Rate 61 65 65 Blood Pressure 120/69 114/65 110/65 Pulse Oximetry 100
--- NOTE | 2021-06-14 19:37 | PM.OBPRVD ---
OB - Delivery Note Procedure Delivery date: 06/14/21 events: Labor < 37 Weeks Intrapartal events: None Induction method: per pitocin protocol Delivery monitor: external FHT and external uterine Route of delivery: Episiotomy description: None Laceration Description: None Quantitative Blood Loss (ml): 71 Narrative: Mother and baby in stable condition. Cord gasses collected and handed off to staff. Baby Date of : 06/14/21 Weeks of gestation at delivery: 36 Infant gender: Male presentation: vertex position: Right Occiput Anterior Placenta delivery description: Spontaneous cord vessel description: 3 Vessels and Delayed Cord Clamping
[2021-06-14] MEDS: OXYTOCIN 30 UNITS/NS 500 ML 30 UNITS/500 ML BAG 125 UNITS IV CONT (20:04)
[2021-06-14] MEDS: IBUPROFEN 600 MG TABLET PO (22:02)
[2021-06-14] MEDS: WITCH HAZEL 40 PADS 1 PAD TOPICAL (22:03)
[2021-06-14] MEDS: BENZOCAINE 20% AER SPR (*SP) 56 GM CAN 1 SPRAY TOPICAL (22:03)
[2021-06-15] MEDS: IBUPROFEN 600 MG TABLET PO ×2 (04:43→11:52)
[2021-06-15 04:45] VITALS: BP 104/59; PULSE 70; RESP 14; TEMP 36.7; O2SAT 100
[2021-06-15 05:00] LABS: Hematocrit 36.7 % (37.0-47.0); Hemoglobin 11.2 g/dL (12.0-15.0)
[2021-06-15 07:40] VITALS: BP 97/57; PULSE 68; RESP 16; TEMP 37.5; O2SAT 98
--- NOTE | 2021-06-15 07:59 | P.PNOB_ITS ---
OB - PN: Subj Subjective Date/time seen: 06/15/21 07:59 Patient comments: no complaints baby status: doing well OB - PN: Obj Data Labs CBC & Chem 7: 06/15/21 04:52 Labs: Laboratory Results - last 24 hr 06/14/21 06/14/21 06/15/21 11:27 11:27 04:52 WBC 6.7 RBC 3.99 L Hgb 11.7 L 11.2 L Hct 35.7 L 36.7 L MCV 89.5 MCH 29.3 MCHC 32.8 RDW 12.9 Plt Count 223 MPV 9.5 Immature Gran % (Auto) 0.5 Neut % (Auto) 69.0 Lymph % (Auto) 17.0 L [place] % (Auto) 11.9 H Eos % (Auto) 1.4 Baso % (Auto) 0.2 Lymph # (Auto) 1.13 [place] # (Auto) 0.8 H Eos # (Auto) 0.1 Baso # (Auto) 0.0 Abs Immat Gran (auto) 0.03 Absolute Neuts (auto) 4.6 Absolute Nucleated RBC 0.0 Nucleated RBC % 0.0 Blood Type O Positive Antibody Screen Negative OB - PN A/P Plan day: 1 Plan: routine care Time Spent With Patient Time: Total time spent is greater than 50% in coordination of care (as doc umented) at patient's floor/unit and/or counseling patient: Time with patient: less than 15 minutes Review of Systems Review of Systems: All systems reviewed & are unremarkable except as noted in HPI and below Exam Narrative: Fundus firm and vaginal flow controlled. No lower ext redness, warmth, or edema. Negative homans. Const: General: comfortable Chest: Breast/axilla inspection: normal inspection of the breasts Resp: Effort & Inspection: normal respiratory effort Cardio: Rate: regular rate GI: GI Palp: Yes Soft to palpation Psych: Appearance: grossly normal Affect: normal affect Attitude: cooperative Thought content: Yes Normal thought content present Judgement: Good judgement present (Psych)
[2021-06-15 08:50] VITALS: PULSE 68; RESP 16; O2SAT 98
--- NOTE | 2021-06-15 10:36 | WPDANLDPN2 ---
Anes-Prog Note L&D Date/Time: 06/15/21 10:36 Comfortable throughout: labor and delivery Neuraxial method: epidural Epidural/Spinal procedure site: clean & non-tender Neuro status: Neuro function grossly intact. Cardiovascular status: normal Respiratory status: normal Airway patency: baseline Mental status: baseline Post-Op hydration status: normal Vital Signs: Last Vital Signs Temp 99.5 F 06/15/21 07:40 Pulse 68 06/15/21 07:40 Resp 16 06/15/21 07:40 BP 97/57 L 06/15/21 07:40 Pulse Ox 98 06/15/21 07:40 Pain score (VAS): 10/09 I/O: Intake & Output 06/14/21 06/15/21 06/15/21 23:59 07:59 15:59 Intake Total 1285 Output Total 484 Balance 801 Post-procedural complaints: none Patient feedback: Patient satisfied with anesthetic care.
[2021-06-15] MEDS: busPIRone HCL 10 MG TABLET PO (11:53)
[2021-06-15] MEDS: valACYclovir HCL 500 MG TABLET PO (11:54)
[2021-06-15] MEDS: MAGNESIUM OXIDE 400 MG TABLET PO ×2 (11:54→16:56)
[2021-06-15] MEDS: lamoTRIgine 25 MG TABLET PO (11:54)
[2021-06-15] MEDS: hydrOXYzine pamoate 25 MG CAPSULE PO (11:54)
[2021-06-15] MEDS: MULTIVIT/MIN/PREN/FOL AC/IRON TABLET 1 TAB PO (11:54)
[2021-06-15 12:56] VITALS: BP 99/51; PULSE 76; RESP 16; TEMP 37.2; O2SAT 99
--- NOTE | 2021-06-15 13:05 | PC.NURSE ---
Mother called out for assist with feeding, mother reports infant has had issues with latching. Mother believes her nipple is too large for infant's mouth. Mother has issues with first child and was able to latch after 4 weeks. Mother will supplement formula after each attempt and has initiated pumping. Infant is able to freely thrust tongue past gum ridge and flange both lips. Skin is intact on both nipples, no redness and bruising noted. Discussed establishing in the late may be more difficult due to their immaturity, infant may be less alert, have less stamina, and have greater difficulty with latch, suck, and swallow. Infant?s feeding may impact mother?s milk supply, pumping may need to be initiated /continued until milk supply is well established and is able to effective without supplementation. Reviewed feeding cues, frequencies, duration of feedings, feeding elimination flow sheet, and signs of adequate intake. Demonstrated stimulation techniques to wake infant for feeding. Assisted with to breast. Reviewed positioning/alignment in cross cradle, holding breast in ?U? hold and guided asymmetrical latch on. Reviewed rational for each. able to latch correctly within a few attempts. nursed eagerly with steady draws and frequent swallowing noted, some pausing noted. Reviewed signs of a correct latch, effective nursing and suck swallow ratio. Suggested mother stimulate while feeding to increase stimulate, increase intake and to assist with maintaining deep latch. was able to maintain latch without discomfort to mother. Demonstrated how to adjust latch more deeply while feeding if needed. Mother will continue to supplement after feedings and then pump. Mother is concerned is early and does not want jaundice and weight loss as with first child. Mother is pumping without difficulties or discomfort. Nipple care reviewed of lanolin after feedings, warm compresses as needed. Instructed mother to call out for RN assistance if she is unable to latch infant for feeding or she has discomfort with nursing. Instructed feeding should be initiated three hours from start of last feeding or if feeding cues are noted before. Mother voiced understanding of information shared.
[2021-06-15] MEDS: ACETAMINOPHEN 325 MG TABLET 650 MG PO (15:50)
[2021-06-15 15:59] VITALS: BP 106/72; PULSE 67; RESP 16; TEMP 37.3; O2SAT 100
[2021-06-15 19:55] VITALS: BP 110/61; PULSE 71; RESP 16; TEMP 36.9; O2SAT 100
[2021-06-16] MEDS: IBUPROFEN 600 MG TABLET PO ×2 (01:57→11:34)
[2021-06-16] MEDS: DOCUSATE SODIUM 100 MG CAPSULE PO (06:59)
[2021-06-16] MEDS: ACETAMINOPHEN 325 MG TABLET 650 MG PO (06:59)
[2021-06-16] MEDS: MULTIVIT/MIN/PREN/FOL AC/IRON TABLET 1 TAB PO (06:59)
[2021-06-16 07:00] VITALS: BP 100/60; PULSE 65; PULSE 71; RESP 14; RESP 16; TEMP 36.7; O2SAT 100; O2SAT 99
--- NOTE | 2021-06-16 07:57 | PM.OBPNVD ---
OB - PN: Subj Subjective Date/time seen: 06/16/21 07:57 Patient comments: no complaints OB - PN: Obj Data Labs CBC & Chem 7: 06/15/21 04:52 OB - PN A/P Plan day: 2 Plan: routine care and discharge home Time Spent With Patient Time: Total time spent is greater than 50% in coordination of care (as documented) at patient's floor/unit and/or counseling patient: Review of Systems Review of Systems: All systems reviewed & are unremarkable except as noted in HPI and below Exam Const: General: healthy appearing
[2021-06-16 08:51] LABS: Rapid Plasma Reagin Non-Reactive (NonReactive)
--- NOTE | 2021-06-16 11:20 | PC.NURSE ---
Mother is able to independently latch with appropriate positioning/alignment. She denies any nipple discomfort, is feeding as required and waking infant to feed if needed. Infant has had a few effective feedings followed with supplementation in the past 24 hours, and is currently meeting outcomes for weight, output, jaundice and feeding frequencies. is more awake and eager to feed today. Infant continues to require supplementation as ICP has suggested for and ineffective feeding. Mother continues to pump without difficulties or discomfort after all feedings due to ineffective feeding. Mother states she feels confident to continue current feeding plan at home. Mother has her own pump for home use. Discussed increasing supplementation as infant requires to satisfactions. Reviewed paced feeding and suggested to stop when is satisfied, as long as infant is having required output. With increased supplementation infant may not want to feed for 4 hours. Mother will continue to pump on infant feeding schedule and will increase session to 20 minutes if pumping every 4 hours. Reviewed once mother?s milk is established and is effectively feeding may have increased intake with nursing. If is effective feeding with long draws and frequent swallowing noted , infant may be ready to decrease/discontinue supplementation. Advised not to discontinue supplement until ICP, Follow-Up RN or LC has a pre/post weighted evaluation of infant feeding. Reviewed transition to breast milk, signs of adequate intake, and engorgement/relief. Instructed to call ICP if intake/output less than required. Reviewed regular medications mother is taking. Information provided per Miriam. Reviewed community resources on the [facility] website and in the Mom/Baby guide. Information on outpatient services provided. Mother has no further questions at this time.
[2021-06-16] MEDS: valACYclovir HCL 500 MG TABLET PO (11:35)
[2021-06-16] MEDS: hydrOXYzine pamoate 25 MG CAPSULE PO (11:35)
[2021-06-16] MEDS: lamoTRIgine 25 MG TABLET PO (11:35)
[2021-06-16] MEDS: MAGNESIUM OXIDE 400 MG TABLET PO (11:35)
[2021-06-16] MEDS: busPIRone HCL 10 MG TABLET PO (11:35)
[2021-06-16] MEDS: TETANUS,DIPHTHERIA,AC PERTUSSIS ADULT (0.5 ML) BOOSTRIX IM (11:46)
[2021-06-19 11:20] VITALS: BP 105/70; PULSE 79; RESP 20; TEMP 36.9; O2SAT 100
--- NOTE | 2021-07-09 09:55 | PM.OBDSVD ---
DS: Admitting Diagnosis Discharge Date 06/16/21 Admitting Diagnosis Labor DS: Discharge Diagnosis Discharge Diagnosis (1) Vaginal delivery: Code(s): O80 - Encounter for full-term uncomplicated delivery Status: Acute OB - DS: Summary OB Procedures : None OB Procedures Intrapartum: Spontaneous Vag Delivery OB Procedures: : None Time Spent with Patient Time attestation: Total time spent providing and/or coordinating discharge services: DS: Data Data Completed and Pending Completed studies during hospitalization: Pending at discharge 06/14/21 19:40 Surgical [PTH] Routine Discharge Plan Discharge Attending physician on discharge: Suzy Lutz Consulting providers: Marya Turner ; Aracelis Chandra Discharging Clinician: Aracelis Chandra Patient Disposition: Home, Self-Care Activity: pelvic rest Diet: regular Discharge Instructions: Education: Mom and Baby Guide Given to: Mother Follow-Up: Call your delivering provider's office for an appointment to be seen in: 4 Weeks Mom and baby should come to the [facility] for the follow-up appointment. Appointment Date/Time: June 19, 2021 at 11:00 am What to expect at your follow-up visit: Blood Pressure Check Physical Assessment Call [phone] if you are unable to keep your appointment time. BREAST CARE: * Wear a snug supportive bra. * For engorgement discomfort: Breast Feeding: * Apply warm moist washcloths * Express milk as needed to relieve engorgement * Wear loose clothing * For sore nipples: * Identify correct latch-on * Apply warm moist washcloths before and after nursing * Air dry nipples after nursing * May apply Lansinoh cream to nipples EPISIOTOMY/PERINEAL CARE: * Until bleeding stops, use your xiang bottle after urinating * Change your pad frequently throughout the day * You may take sitz baths several times a day (fill your bathtub with warm water and soak for 20 minutes.) Do NOT bathe in the water * No tub baths until seen by your physician - You may shower ACTIVITY: * Rest as much as possible. * Do not exercise or lift anything heavier than your baby (such as laundry or other children.) * Avoid stairs or driving as much as possible. * Do not put anything into the vagina. No douching, tampons, or sexual activity until seen by physician. NOTIFY PHYSICIAN IF YOU HAVE ANY QUESTIONS OR IF ANY OF THE FOLLOWING SYMPTOMS OCCUR: * If your vaginal area becomes red, swollen, or more painful than what you have experienced in the hospital. * If your vaginal bleeding becomes foul smelling. * If your vaginal bleeding becomes more heavy than a period or if your bleeding changes from pink to bright red. However, you may pass an occasional walnut-sized clot once or twice for the first week . * If you experience a sharp, shooting pain in your calves. * If you discover a hard, reddened area on your breast or if you experience flu-like symptoms. DIET: * Eat regular, well-balanced meals. * Drink plenty of fluids daily. If , drink to thirst. Stand Alone Forms: General Discharge Information Follow-up/Referrals: Marya Turner CNM [Certified Nurse Delivery Mgr] - 4 Weeks Discharge Medications: Continued polysaccharide iron complex [Poly-Iron] 150 mg iron capsule 150 mg PO DAILY RF: 0 valacyclovir 500 mg tablet 500 mg PO DAILY RF: 0 lamotrigine 25 mg Tablet,Disintegrating 25 mg PO DAILY RF: 0 magnesium oxide 400 mg (241.3 mg magnesium) tablet 400 mg PO BID RF: 0 buspirone 10 mg tablet 10 mg PO DAILY RF: 0 budesonide-formoterol [Symbicort] 80-4.5 mcg/actuation HFA aerosol inhaler 1 puff INHALATION BID RF: 0 acetaminophen 325 mg tablet 325 mg PO Q4H PRN (Reason: Headache or pain) RF: 0 hydroxyzine pamoate 25 mg Capsule 25 mg PO TID PRN (Reason:
== END 2021-06-16 12:10 | disposition home or self-care (01) | DRG 560 ==
LOC: ANHLDR 11:11 → ANHOB2 23:51
PROVIDERS: Advanced Practice Midwife; Admitting Provider Obstetrics & Gynecology; Visit Provider Obstetrics & Gynecology
DX: O36.5930 Maternal care for other known or suspected poor fetal growth, third trimester, not applicable or unspecified (principal); Z37.0 Single live birth; Z3A.36 36 weeks gestation of pregnancy; O62.3 Precipitate labor; O60.14X0 Preterm labor third trimester with preterm delivery third trimester, not applicable or unspecified; O36.8330 Maternal care for abnormalities of the fetal heart rate or rhythm, third trimester, not applicable or unspecified; O99.344 Other mental disorders complicating childbirth; F43.10 Post-traumatic stress disorder, unspecified; O99.354 Diseases of the nervous system complicating childbirth; G40.89 Other seizures
CPT/HCPCS: 36415; 85014; 85018; 85025; 86592; 86850; 86900; 86901; 88307; 90715; A9270; J2590; J2795; J7120

== ENCOUNTER 2022-08-11 12:47 | Emergency (ER) | payer OTHER, SELFPAY ==
[2022-08-11] VITALS (20 sets, daily range): BP systolic 99–116; BP diastolic 60–72; PULSE 52–76; RESP 14–25; TEMP 37.5; O2SAT 96–100
--- NOTE | ~2022-08-11 | US_ITS ---
EXAMINATION: US OB <= 14 weeks fetus DATE: 08/11/2022 14:03 INDICATION: Vaginal bleeding during first trimester TECHNIQUE: Real-time pelvic transabdominal and transvaginal ultrasound was performed. COMPARISON: None. FINDINGS: The uterus measures 12.1 x 9.8 x 8.9 cm. There is an intrauterine gestational sac. There i s a 2.5 x 0.8 cm hypoechoic area adjacent to the gestational sac. There is question of a small amount of fluid in the endocervical canal. A yolk sac is identified. heart motion is identified measu ring 171 beats per minute (bpm) by M-mode Doppler. The crown rump length measures 2.3 cm, which correlates with an estimated gestational age of 9 weeks and 0 day(s) (+/-) 6 day(s). The left ovary is not visualized however no left adnexal abnormality is seen. The right ovary measure s 2.4 x 2.7 x 1.0 cm. There is normal vascular flow in the right ovary. There is no free fluid in the pelvis. IMPRESSION: 1. Live intrauterine with an estimated gestational age of 9 weeks and 0 day(s) (+/-) 6 day( s) and an estimated delivery date of 03/16/2023. 2. Small subchorionic hematoma. Reviewed, dictated and finalized at location A. ED MEAT PREPARER IMPRESSION: 1. Live intrauterine with an estimated gestational age of 9 weeks and 0 day(s) (+/-) 6 day(s) and an estimated delivery date of 03/16/2023. 2. Small subchorionic hematoma.
[2022-08-11] MEDS: LACTATED RINGERS 1,000 ML 999 ML IV CONT (14:21)
[2022-08-11] MEDS: ONDANSETRON INJ 4 MG/2 ML VIAL IV PUSH (14:24)
[2022-08-11 14:31] LABS: Basophils Percent Auto 0.2 % (0.2-1.2); Basophils Percent Auto 0.3 % (0.2-1.2); Eosinophils Percent Auto 0.3 % (0-4.4); Eosinophils Percent Auto 0.6 % (0-4.4); Hematocrit 39.1 % (37.0-47.0); Hematocrit 40.1 % (37.0-47.0); Hemoglobin 13.6 g/dL (12.0-15.0); Hemoglobin 13.7 g/dL (12.0-15.0); Immature Granulocyte Absolute 0.01 K/mm3 (0.00-0.031); Immature Granulocyte Absolute 0.02 K/mm3 (0.00-0.031); Immature Granulocyte Percent A 0.2 % (0-0.5); Immature Granulocyte Percent A 0.3 % (0-0.5); Lymphocytes Absolute Auto 1.58 K/mm3 (0.9-3.2); Lymphocytes Absolute Auto 1.66 K/mm3 (0.9-3.2); Lymphocytes Percent Auto 26.6 % (18.3-44.2); Lymphocytes Percent Auto 26.8 % (18.3-44.2); Mean Corpuscular HGB Conc 34.2 g/dl (32-36); Mean Corpuscular HGB Conc 34.8 g/dl (32-36); Mean Corpuscular Hemoglobin 29.1 pg (26-34); Mean Corpuscular Hemoglobin 29.7 pg (26-34); Mean Corpuscular Volume 85.3 fl (80-100); Mean Corpuscular Volume 85.4 fl (80-100); Mean Platelet Volume 8.9 fl (7.4-10.4); Mean Platelet Volume 9.2 fl (7.4-10.4); Monocytes Absolute Auto 0.5 K/mm3 (0.1-0.6); Monocytes Absolute Auto 0.6 K/mm3 (0.1-0.6); Monocytes Percent Auto 9.3 % (2.6-8.5); Neutrophils Absolute Auto 3.7 K/mm3 (1.3-6.7); Neutrophils Absolute Auto 3.9 K/mm3 (1.3-6.7); Neutrophils Percent Auto 63.4 % (45.5-73.1); Platelet Count Result 289 k/mm3 (150-375); Platelet Count Result 299 k/mm3 (150-375); Red Blood Count 4.58 M/mm3 (4.2-5.4); Red Cell Distribution Width 12.1 % (11.5-14.5); Red Cell Distribution Width 12.2 % (11.5-14.5); White Blood Count 5.9 K/mm3 (4.5-10.0); White Blood Count 6.3 K/mm3 (4.5-10.0)
--- NOTE | 2022-08-11 14:32 | ED.PREGNANCY ---
HPI - General Chief complaint: DIAGNOSTIC TECHNOLOGIST Stated complaint: vaginal bleeding after injury while Time Seen by Provider: 08/11/22 13:52 Source: patient and RN notes reviewed Mode of arrival: ambulatory Limitations: no limitations History of Present Illness HPI Narrative: This is a 27 year old female approximately 9 wk GA by LMP who presents for evaluation of abdominal cramping. She states that her 2 year old child stepped on her right lower abdomen. She has developed cramping and vaginal bleeding afterwards. She was taking a shower and noticed bright red blood down her leg. The bleeding lasted on a few minutes and it has stopped. She has not had US for this yet. She denies vaginal bleeding or cramping before this occurred. She has been dealing with morning sickness . She is having nausea and vomiting. Denies fever or chills. Her OBGYN is Dr Lutz Related Data Home Medications Medication Instructions Recorded Confirmed polysaccharide iron complex 150 mg 150 mg PO DAILY 04/22/21 06/14/21 iron capsule (Poly-Iron) acetaminophen 325 mg tablet 325 mg PO Q4H PRN Headache or pain 05/07/21 06/14/21 budesonide-formoterol HFA 80 1 puff inhalation BID 05/07/21 06/14/21 mcg-4.5 mcg/actuation aerosol inhaler (Symbicort) buspirone 10 mg tablet 10 mg PO DAILY 05/07/21 06/14/21 magnesium oxide 400 mg (241.3 mg 400 mg PO BID 05/07/21 06/14/21 magnesium) tablet lamotrigine 25 mg disintegrating 25 mg PO DAILY 06/14/21 06/14/21 tablet valacyclovir 500 mg tablet 500 mg PO DAILY 06/14/21 06/14/21 Allergies Allergy/AdvReac Type Severity Reaction Status Date / Time No Known Allergies Allergy Unknown Verified 04/22/20 13:45 Review of Systems Review of Systems: All systems reviewed & are unremarkable except as noted in HPI and below Constitutional: Constitutional: Denies chills, Denies fatigue and Denies fever(s) Cardiovascular: Cardiovascular: Denies chest pain and Denies rapid heart rate Gastrointestinal: Gastrointestinal: Reports abdominal pain, Denies diarrhea, Reports nausea and Reports vomiting Genitourinary: Genitourinary: Reports abnormal vaginal bleeding Musculoskeletal: Musculoskeletal: Denies back pain PMFSH Past Medical History Medical History Psychogenic nonepileptic seizure PTSD (post-traumatic stress disorder) Surgical History Surgical History History of umbilical hernia repair Family History Family History Other Diabetes mellitus Sibling Sickle cell anemia Mother Family history of seizure disorder Social History Social History Smoking status: Never smoker Second hand tobacco smoke exposure: No Alcohol intake: never Substance use: never Substance use type: marijuana Gender identity (if verbalized by the patient): Female Spiritual care concerns: No Exam Const: General: no acute distress and alert Nutritional Appearance: well nourished Orientation/consciousness: patient oriented x3 Limitations: no limitations HENMT: Head: normal to inspection Eyes: EOM: EOMs intact bilaterally Neck: Neck: normal visual inspection Chest: Chest palpation & inspection: normal inspection of the chest Resp: Effort & Inspection: normal respiratory effort Auscultation: clear to auscultation bilaterally Cardio: Rate: regular rate Rhythm: regular rhythm Heart sounds: no murmurs GI: GI Palp: Yes Soft to palpation, Yes Tenderness to palpation present (GI) (suprapubic), No Guarding due to palpation present (GI) and No Rigid due to palpation Auscultation: normal bowel sounds : Speculum Exam - Vagina: normal appearance of the vagina Skin: General skin exam: normal color Neuro: General: patient oriented x3, moves all extremities and CN's II-XI intact bilaterall
[2022-08-11 14:39] LABS: Lipase 100 U/L (23-300)
[2022-08-11 15:36] LABS: Alanine Aminotransferase 15 U/L (6-35); Albumin Level 4.8 g/dL (3.5-5.1); Alkaline Phosphatase 79 U/L (38-126); Anion Gap 15 mmol/L (8-16); Aspartate Amino Transferase 25 U/L (14-36); Bilirubin,Total 0.4 mg/dL (0.2-1.3); Blood Urea Nitrogen 6 mg/dL (7-17); Calcium 8.9 mg/dL (8.4-10.2); Carbon Dioxide 21 mmol/L (22-30); Chloride 101 mmol/L (98-107); Estimated CRCL calculation 112 ml/min; Estimated Glomerular Filt Rate > 60; Glucose 82 mg/dL (65-110); Potassium 3.7 mmol/L (3.4-5.0); Sodium 137 mmol/L (137-145)
[2022-08-11 16:07] LABS: Bacteria Urine Trace /hpf; Mucus Urine Rare /lpf; RBC Urine 0-2 /hpf (0-2); Squamous Epithelial Cell Urine Occasional /hpf (Few); WBC Urine 0-3 /hpf
[2022-08-11 16:08] LABS: Add Urine Microscopic? YES; Appearance Urine Clear (Clear); Bilirubin Urine Negative (Negative); Blood Urine Negative (Negative); Color Urine Yellow (Yellow); Glucose Urine UA Negative (Negative); Ketones Urine 1+ mg/dL (Negative); Leukocyte Esterase Ur Negative LEU/UL (Negative); Nitrate Urine Negative (Negative); Protein Urine Negative (Negative); Urobilinogen Urine 0.2 mg/dL (<2.0)
[2022-08-11 16:31] LABS: Beta HCG Quantitative > 375000.00 mIU/ML
== END 2022-08-11 16:35 | disposition home or self-care (01) ==
PROVIDERS: Emergency Provider General Practice
DX: O45.91 Premature separation of placenta, unspecified, first trimester (principal); Z3A.09 9 weeks gestation of pregnancy
CPT/HCPCS: 36415; 76801; 80053; 81001; 83690; 84702; 85025; 85461; 86850; 86900; 86901; 96365; 96366; 96375; 99284; J0131; J2405; J7120